=== PATIENT | female | born 1995 | race Caucasian/White ===

== ENCOUNTER → 2023-09-10 14:34 | Outpatient (REF) | payer OTHER, SELFPAY | LOC: HWRAD 14:34 | PROVIDERS: ATTENDING PHYSICIAN Nurse Practitioner; FAMILY PHYSICIAN Physician Assistant Medical | DX: K58.0 Irritable bowel syndrome with diarrhea (principal); R10.31 Right lower quadrant pain | CPT/HCPCS: 74177; Q9967 ==

== ENCOUNTER → 2024-02-07 15:14 | Outpatient (REF) | payer OTHER, SELFPAY | LOC: PNTC 15:14 | PROVIDERS: ATTENDING PHYSICIAN Student in an Organized Health Care Education/Training Program | DX: Z36.0 Encounter for antenatal screening for chromosomal anomalies (principal); Z36.82 Encounter for antenatal screening for nuchal translucency | CPT/HCPCS: 76801; 76813 ==

== ENCOUNTER → 2024-02-29 16:57 | Outpatient (REF) | payer OTHER, SELFPAY | LOC: PNTC 16:57 | PROVIDERS: ATTENDING PHYSICIAN Student in an Organized Health Care Education/Training Program | DX: O99.210 Obesity complicating pregnancy, unspecified trimester (principal); O14.90 Unspecified pre-eclampsia, unspecified trimester; Z34.82 Encounter for supervision of other normal pregnancy, second trimester | CPT/HCPCS: 76805 ==

== ENCOUNTER → 2024-03-28 06:57 | Outpatient (REF) | payer OTHER, SELFPAY | LOC: PNTC 06:57 | PROVIDERS: ATTENDING PHYSICIAN Student in an Organized Health Care Education/Training Program | DX: O99.210 Obesity complicating pregnancy, unspecified trimester (principal) | CPT/HCPCS: 76811 ==

== ENCOUNTER 2024-04-21 13:32 | Observation (INO) | payer OTHER, SELFPAY ==
[2024-04-21 14:04] VITALS: BMI 31.5
[2024-04-21 15:10] LABS: Hematocrit 33.9 % (37.0-47.0); Hemoglobin 11.8 g/dL (12.0-16.0); Mean Corp Hgb Conc. 34.8 g/dL (33.0-37.0); Mean Corpuscular Hgb 30.5 pg (27.0-31.0); Mean Corpuscular Volume 87.6 fL (81.0-99.0); Mean Platelet Volume 8.9 fL (7.4-10.4); Platelet Count 334 10^3/uL (130-400); Red Blood Cell Count 3.87 10^6/uL (4.20-5.40); Red Cell Dist. Width 13.2 % (11.5-14.5); Urine Albumin 1+ (Neg - Trace); Urine Bilirubin Negative (Negative); Urine Character Clear (Clear); Urine Color Yellow; Urine Glucose Negative (Negative); Urine Ketone Negative (Negative); Urine Leukocyte Negative (Negative); Urine Nitrite Negative (Negative); Urine Occult Blood Negative (Negative); Urine Specific Gravity 1.015 (<1.030); Urine Urobilinogen Negative (Neg - 1+); White Blood Cell Count 12.5 10^3/uL (4.8-10.8)
[2024-04-21 15:25] LABS: ALT (SGPT) 15 U/L (0-35); AST (SGOT) 21 U/L (14-36); Albumin 3.9 g/dl (3.5-5.0); Alkaline Phosphatase 64 U/L (38-126); Blood Urea Nitrogen 8 mg/dl (7-17); Calcium 9.7 mg/dl (8.4-10.2); Carbon Dioxide 25 mmol/L (22-30); Chloride 101 mmol/L (98-107); Estimated Creatinine Clearance > 125 ml/min; Glucose 81 mg/dl (70-99); Potassium 4.3 mmol/L (3.5-5.1); Sodium 134 mmol/L (135-145); Total Bilirubin 0.7 mg/dl (0.2-1.3); Total Protein 6.5 g/dl (6.3-8.2); Urine Red Blood Cell 0-2 /HPF (0-2); eGFR > 60.00
[2024-04-21 15:26] LABS: Urine Bacteria Moderate (Negative)
[2024-04-21 15:38] LABS: Protein/creatinine Ratio 0.2; Urine Protein 15 mg/dl
== END 2024-04-21 18:04 | disposition home or self-care (01) ==
LOC: LDRP 13:32
PROVIDERS: ADMITTING PHYSICIAN Obstetrics & Gynecology
DX: R50.9 Fever, unspecified (principal); R42 Dizziness and giddiness; R11.0 Nausea; O26.892 Other specified pregnancy related conditions, second trimester; Z3A.23 23 weeks gestation of pregnancy; Z88.1 Allergy status to other antibiotic agents; Z88.0 Allergy status to penicillin; Z88.8 Allergy status to other drugs, medicaments and biological substances
CPT/HCPCS: 59899; 80053; 81003; 81015; 82570; 84156; 85027; G0378

== ENCOUNTER → 2024-05-10 09:35 | Outpatient (REF) | payer OTHER, SELFPAY ==
--- NOTE | 2024-05-10 07:13 | PN.DIAED06 ---
Meal Plan - Gestational
- Breakfast
Gestational Diabetes Meal Plan Name: 2000 calories
Breakfast - Total Carbohydrate (grams): 45
Breakfast - Starch Carbohydrate: 2
Breakfast - Fruit Carbohydrate: 0
Breakfast - Milk Carbohydrate: 1
Breakfast - Nonstarchy Vegetables: Yes
Breakfast - Meat/Protein: 1
Breakfast - Fat: 2
- Morning Snack
Morning Snack - Total Carbohydrate (grams): 30
Morning Snack - Starch Carbohydrate: 1
Morning Snack - Fruit Carbohydrate: 0
Morning Snack - Milk Carbohydrate: 1
Morning Snack - Nonstarchy Vegetables: Yes
Morning Snack - Meat/Protein: 0
Morning Snack - Fat: 0
- Lunch
Lunch - Total Carbohydrate (grams): 45
Lunch - Starch Carbohydrate: 1
Lunch - Fruit Carbohydrate: 1
Lunch - Milk Carbohydrate: 1
Lunch - Nonstarchy Vegetables: Yes
Lunch - Meat/Protein: 2
Lunch - Fat: 2
- Afternoon Snack
Afternoon Snack - Total Carbohydrate (grams): 30
Afternoon Snack - Starch Carbohydrate: 1
Afternoon Snack - Fruit Carbohydrate: 1
Afternoon Snack - Milk Carbohydrate: 0
Afternoon Snack - Nonstarchy Vegetables: Yes
Afternoon Snack - Meat/Protein: 1
Afternoon Snack - Fat: 0
- Dinner
Dinner - Total Carbohydrate (grams): 45
Dinner - Starch Carbohydrate: 2
Dinner - Fruit Carbohydrate: 1
Dinner - Milk Carbohydrate: 0
Dinner - Nonstarchy Vegetables: Yes
Dinner - Meat/Protein: 2
Dinner - Fat: 2
- Evening Snack
Evening Snack - Total Carbohydrate (grams): 45
Evening Snack - Starch Carbohydrate: 1
Evening Snack - Fruit Carbohydrate: 1
Evening Snack - Milk Carbohydrate: 1
Evening Snack - Nonstarchy Vegetables: Yes
Evening Snack - Meat/Protein: 1
Evening Snack - Fat: 0
--- NOTE | 2024-05-10 11:52 | PN.DE.MGMTRT ---
Insulin Management
- -
05/10/2024 Gestational Diabetes Education
Patient G 1, P 0, edc 08/15/2024. Pre weight ~ 185.
Provided gestational education booklet and reviewed all aspects of gestational diagnosis. Patient unsure of her glucose values when she had the GTT. Reviewed risk factors for gestational diabetes, of which she has 2.
Provided ADA nutrition booklet and reviewed CHO foods, proteins, fats as well as serving sizes and number of servings per meal and snack. Provided 2000 calorie gestational meal plan and reviewed each meal and snack recommended servings. Patient is
able to repeat back appropriate choices.
Patient unsure of preferred glucose meter but thinks OneTouch Verio is preferred. Instructed on steps for testing including site selection for obtaining drop of blood, applying to strip. Instructed to test glucose fasting and 2 hours after each
meal. She knows to report results weekly to [facility].
RX for test strips lancets and meter electronically sent to preferred pharmacy.
Patient has my number for further questions.
Diabetes History
- -
Type of Diabetes: Gestational
Pre-Admission Diabetes Regimen
Insulin Pump Settings
IP Diabetes Regimen
Patient Education
--- NOTE | 2024-05-11 15:56 | PN.DIAED10 ---
Update Note
- Diabetes Education Update Note
Notes:
05/11/2024 DIABETES EDUCATION
Nohemi received prescription for Accu-Chek test strips but glucometer is out of stock, she is expecting this tomorrow. I requested sample of Contour Next Glucometer, test strips, and lancet kit, verbal education on how to SMBG. She completed a
self demonstration of fingerstick. I also provided education on [employer] ReliOn brand glucometer, test strips and lancets available OTC if the need arises. She verbalized understanding.
== END ==
LOC: DES 09:35
PROVIDERS: ATTENDING PHYSICIAN Student in an Organized Health Care Education/Training Program
DX: O24.419 Gestational diabetes mellitus in pregnancy, unspecified control (principal)
CPT/HCPCS: 99078

== ENCOUNTER → 2024-05-18 07:56 | Outpatient (REF) | payer OTHER, SELFPAY | LOC: PNTC 07:56 | PROVIDERS: ATTENDING PHYSICIAN Student in an Organized Health Care Education/Training Program | DX: O99.210 Obesity complicating pregnancy, unspecified trimester (principal); O99.320 Drug use complicating pregnancy, unspecified trimester | CPT/HCPCS: 76816 ==

== ENCOUNTER → 2024-06-06 16:05 | Outpatient (REF) | payer OTHER, SELFPAY | LOC: PNTC 16:05 | PROVIDERS: ATTENDING PHYSICIAN Obstetrics & Gynecology | DX: O36.8190 Decreased fetal movements, unspecified trimester, not applicable or unspecified (principal) | CPT/HCPCS: 59025; 76815 ==

== ENCOUNTER → 2024-06-29 08:13 | Outpatient (REF) | payer OTHER, SELFPAY | LOC: PNTC 08:13 | PROVIDERS: ATTENDING PHYSICIAN Student in an Organized Health Care Education/Training Program | DX: O99.210 Obesity complicating pregnancy, unspecified trimester (principal); O35.8XX0 Maternal care for other (suspected) fetal abnormality and damage, not applicable or unspecified | CPT/HCPCS: 76816 ==

== ENCOUNTER 2024-07-12 21:11 | Observation (INO) | payer OTHER, SELFPAY ==
[2024-07-12 21:18] VITALS: BMI 33.1
[2024-07-12 21:42] LABS: Glucose - Point of Care 83 mg/dl (70-99)
[2024-07-12 21:53] VITALS: BP 137/86
== END 2024-07-12 23:46 | disposition home or self-care (01) ==
LOC: LDRP 21:11
PROVIDERS: ADMITTING PHYSICIAN Obstetrics & Gynecology
DX: O36.8130 Decreased fetal movements, third trimester, not applicable or unspecified (principal); Z3A.35 35 weeks gestation of pregnancy; M54.9 Dorsalgia, unspecified; R10.9 Unspecified abdominal pain; O24.410 Gestational diabetes mellitus in pregnancy, diet controlled; O99.343 Other mental disorders complicating pregnancy, third trimester; F41.9 Anxiety disorder, unspecified; Z28.310 Unvaccinated for COVID-19; Z88.0 Allergy status to penicillin; Z88.8 Allergy status to other drugs, medicaments and biological substances
CPT/HCPCS: 59899; 82962; G0378

== ENCOUNTER → 2024-07-18 16:22 | Outpatient (REF) | payer OTHER, SELFPAY | LOC: CLAB 16:22 | PROVIDERS: ATTENDING PHYSICIAN Student in an Organized Health Care Education/Training Program | DX: Z36.85 Encounter for antenatal screening for Streptococcus B (principal) | CPT/HCPCS: 87070 ==

== ENCOUNTER 2024-07-28 00:09 | Inpatient (IN) | payer OTHER, SELFPAY ==
[2024-07-28 00:52] VITALS: BP 127/82; BMI 34.9
[2024-07-28 01:14] LABS: Glucose - Point of Care 114 mg/dl (70-99)
[2024-07-28] MEDS: LR 1000 IV ×2 (01:15→02:10)
[2024-07-28 01:30] LABS: % Basophils 0.2 % (0-2); % Eosinophils 1.2 % (0-6); % Immature Granulocytes 0.9 % (0-0.5); % Lymphocytes 19.4 % (20.5-51.1); % Monocytes 7.1 % (1.7-9.3); % Neutrophils 71.2 % (42.2-75.2); Absolute Eosinophils 0.2 10^3/uL (0-0.7); Absolute Immature Granulocytes 0.1 10^3/uL (0-0.05); Absolute Lymphocytes 2.4 10^3/uL (1.2-3.4); Absolute Monocytes 0.9 10^3/uL (0.1-0.6); Absolute Neutrophils 8.7 10^3/uL (1.4-6.5); Hemoglobin 11.6 g/dL (12.0-16.0); Mean Corp Hgb Conc. 35.2 g/dL (33.0-37.0); Mean Corpuscular Hgb 29.4 pg (27.0-31.0); Mean Corpuscular Volume 83.8 fL (81.0-99.0); Mean Platelet Volume 10.2 fL (7.4-10.4); Nucleated Red Blood Cells % 0 %; Platelet Count 294 10^3/uL (130-400); Red Blood Cell Count 3.94 10^6/uL (4.20-5.40); Red Cell Dist. Width 13.5 % (11.5-14.5); White Blood Cell Count 12.2 10^3/uL (4.8-10.8)
[2024-07-28] MEDS: CLEOCIN 50 IV ×3 (02:10→17:53)
[2024-07-28 05:03] LABS: Glucose - Point of Care 81 mg/dl (70-99)
[2024-07-28] MEDS: PITOCIN 30 UNITS/NSS 500 ML IV (05:38)
[2024-07-28 09:10] LABS: Glucose - Point of Care 84 mg/dl (70-99)
[2024-07-28 12:51] LABS: Glucose - Point of Care 76 mg/dl (70-99)
[2024-07-28] MEDS: SUBLIMAZE 100 MCG EPIDURAL (16:35)
[2024-07-28] MEDS: FENTANYL/BUPIVACAINE 100 EPIDURAL (16:35)
[2024-07-28 16:54] LABS: Glucose - Point of Care 76 mg/dl (70-99)
[2024-07-28 20:12] LABS: Glucose - Point of Care 81 mg/dl (70-99)
[2024-07-28] MEDS: ZOLOFT 100 MG PO (21:16)
[2024-07-29] MEDS: FENTANYL/BUPIVACAINE 100 EPIDURAL ×2 (00:40→10:06)
[2024-07-29 00:50] LABS: Glucose - Point of Care 78 mg/dl (70-99)
[2024-07-29] MEDS: CLEOCIN 50 IV ×2 (01:44→10:06)
[2024-07-29] MEDS: LR 1000 IV ×2 (02:08→10:00)
[2024-07-29 05:40] LABS: Glucose - Point of Care 79 mg/dl (70-99)
[2024-07-29 08:48] LABS: Glucose - Point of Care 90 mg/dl (70-99)
[2024-07-29] MEDS: ZOLOFT PO (09:04)
[2024-07-29] MEDS: TYLENOL 1000 MG PO (10:33)
[2024-07-29] MEDS: BICITRA 30 ML PO (10:33)
[2024-07-29 11:45] LABS: Cord VBG B.E. - POC -1.3 mmol/L; Cord VBG HCO3 - POC 23 mmol/L; Cord VBG O2 Sat % - POC 64.4 %; Cord VBG pCO2 - POC 36 mmHg; Cord VBG pH - POC 7.41; Cord VBG pO2 - POC 33 mmHg
[2024-07-29] MEDS: TUMS CHEWABLE TABLET 400 MG PO (12:01)
[2024-07-29] MEDS: MORPHINE SULFATE 4 MG IV (13:54)
[2024-07-29] MEDS: TORADOL 15 MG IV ×2 (15:26→20:50)
[2024-07-29] MEDS: ZOLOFT 100 MG PO (21:26)
[2024-07-30] MEDS: TORADOL 15 MG IV ×2 (02:58→08:39)
[2024-07-30 04:35] LABS: Hematocrit 29.2 % (37.0-47.0); Hemoglobin 10.1 g/dL (12.0-16.0); Mean Corp Hgb Conc. 34.6 g/dL (33.0-37.0); Mean Corpuscular Hgb 29.9 pg (27.0-31.0); Mean Corpuscular Volume 86.4 fL (81.0-99.0); Mean Platelet Volume 10.5 fL (7.4-10.4); Platelet Count 261 10^3/uL (130-400); Red Blood Cell Count 3.38 10^6/uL (4.20-5.40); Red Cell Dist. Width 13.7 % (11.5-14.5); White Blood Cell Count 15.8 10^3/uL (4.8-10.8)
[2024-07-30] MEDS: PRENATAL PLUS 1 TABLET PO (08:39)
[2024-07-30] MEDS: SENOKOT-S 1 TABLET PO (08:48)
--- NOTE | 2024-07-30 14:23 | W.PN.ANS.POP ---
Anesthesia Post Operative
- Anesthesia Post Op Note
Vital Signs Stable-See Nursing Note: Yes
Airway Patent: Yes
Adequate Pain Control: Yes
Change in Mental Status: No
Current Postoperative Nausea & Vomiting: No
Anesthesia Complications: No
General Anesthetic Recall: No
Unplanned Admission: No
Post Op Hydration Adequate: Yes
[2024-07-30] MEDS: PERCOCET 5/325 1 TABLET PO ×3 (14:35→22:08)
[2024-07-30] MEDS: MOTRIN 600 MG PO ×2 (16:39→22:08)
[2024-07-30 22:42] LABS: % Basophils 0.1 % (0-2); % Eosinophils 0.3 % (0-6); % Immature Granulocytes 0.9 % (0-0.5); % Lymphocytes 9.6 % (20.5-51.1); % Monocytes 6.3 % (1.7-9.3); % Neutrophils 82.8 % (42.2-75.2); Absolute Immature Granulocytes 0.1 10^3/uL (0-0.05); Absolute Lymphocytes 1.4 10^3/uL (1.2-3.4); Absolute Monocytes 0.9 10^3/uL (0.1-0.6); Absolute Neutrophils 11.8 10^3/uL (1.4-6.5); Hematocrit 29.4 % (37.0-47.0); Mean Corpuscular Hgb 29.9 pg (27.0-31.0); Mean Corpuscular Volume 87.8 fL (81.0-99.0); Mean Platelet Volume 9.8 fL (7.4-10.4); Nucleated Red Blood Cells % 0 %; Platelet Count 299 10^3/uL (130-400); Red Blood Cell Count 3.35 10^6/uL (4.20-5.40); Red Cell Dist. Width 14.1 % (11.5-14.5); White Blood Cell Count 14.2 10^3/uL (4.8-10.8)
[2024-07-30 23:02] LABS: ALT (SGPT) 15 U/L (0-35); AST (SGOT) 25 U/L (14-36); Albumin 2.9 g/dl (3.5-5.0); Alkaline Phosphatase 116 U/L (38-126); Blood Urea Nitrogen 10 mg/dl (7-17); Calcium 8.7 mg/dl (8.4-10.2); Carbon Dioxide 24 mmol/L (22-30); Chloride 109 mmol/L (98-107); Estimated Creatinine Clearance 121 ml/min; Glucose 102 mg/dl (70-99); Potassium 4.2 mmol/L (3.5-5.1); Sodium 136 mmol/L (135-145); Total Bilirubin 0.4 mg/dl (0.2-1.3); Total Protein 5.4 g/dl (6.3-8.2); eGFR > 60.00
[2024-07-30] MEDS: VANCOCIN 540 MG IV (23:02)
[2024-07-30] MEDS: CLEOCIN 50 IV (23:07)
[2024-07-30] MEDS: ZOLOFT 100 MG PO (23:27)
[2024-07-30] MEDS: GENTAMICIN 62.25 MG IV (23:36)
[2024-07-31] MEDS: BENADRYL 25 MG IV (00:24)
[2024-07-31] MEDS: PERCOCET 5/325 2 TABLET PO ×2 (02:00→06:24)
[2024-07-31] MEDS: MOTRIN 600 MG PO ×4 (04:03→22:29)
[2024-07-31] MEDS: CLEOCIN 50 IV ×3 (05:57→22:03)
[2024-07-31 06:22] LABS: % Basophils 0.3 % (0-2); % Eosinophils 0.1 % (0-6); % Immature Granulocytes 1.6 % (0-0.5); % Lymphocytes 9.1 % (20.5-51.1); % Monocytes 4.3 % (1.7-9.3); % Neutrophils 84.6 % (42.2-75.2); Absolute Immature Granulocytes 0.2 10^3/uL (0-0.05); Absolute Monocytes 0.5 10^3/uL (0.1-0.6); Absolute Neutrophils 9.3 10^3/uL (1.4-6.5); Hematocrit 28.5 % (37.0-47.0); Hemoglobin 9.8 g/dL (12.0-16.0); Mean Corp Hgb Conc. 34.4 g/dL (33.0-37.0); Mean Corpuscular Volume 87.2 fL (81.0-99.0); Mean Platelet Volume 9.8 fL (7.4-10.4); Nucleated Red Blood Cells % 0 %; Platelet Count 278 10^3/uL (130-400); Red Blood Cell Count 3.27 10^6/uL (4.20-5.40); Red Cell Dist. Width 14.2 % (11.5-14.5); White Blood Cell Count 10.9 10^3/uL (4.8-10.8)
[2024-07-31 08:24] LABS: Cord ABG HCO3 - POC 26 mmol/L; Cord ABG pCO2 - POC 53 mmHg; Cord ABG pO2 - POC < 18 mmHg
[2024-07-31] MEDS: FEOSOL 325 MG PO (09:14)
[2024-07-31] MEDS: PRENATAL PLUS 1 TABLET PO (09:14)
[2024-07-31] MEDS: VANCOCIN 200 IV ×2 (09:52→22:02)
[2024-07-31] MEDS: PERCOCET 5/325 1 TABLET PO ×2 (12:31→20:44)
[2024-07-31] MEDS: ZOLOFT 100 MG PO (22:13)
[2024-07-31] MEDS: SENOKOT-S 1 TABLET PO (22:29)
[2024-07-31] MEDS: TYLENOL 650 MG PO (22:37)
[2024-07-31] MEDS: GENTAMICIN 62.25 MG IV (22:57)
[2024-08-01] MEDS: CLEOCIN 50 IV ×2 (06:08→14:34)
[2024-08-01] MEDS: MOTRIN 600 MG PO ×3 (06:17→19:35)
[2024-08-01] MEDS: TYLENOL 650 MG PO ×2 (06:17→19:35)
[2024-08-01 06:29] LABS: Hematocrit 30.6 % (37.0-47.0); Hemoglobin 10.1 g/dL (12.0-16.0); Mean Corpuscular Hgb 29.2 pg (27.0-31.0); Mean Corpuscular Volume 88.4 fL (81.0-99.0); Mean Platelet Volume 9.3 fL (7.4-10.4); Platelet Count 233 10^3/uL (130-400); Red Blood Cell Count 3.46 10^6/uL (4.20-5.40); Red Cell Dist. Width 14.3 % (11.5-14.5)
[2024-08-01 07:43] LABS: Absolute Neutrophils -Man Diff 8.9 10^3/uL (1.4-6.5); Band Neutrophils 10 % (0-3); Lymphocytes 10 % (20-51); Monocytes 1 % (2-9); Normal RBC Morphology Yes; Platelets Checked Yes; Segmented Neutrophils 79 % (42-75); Total Cells Counted 100
[2024-08-01] MEDS: FEOSOL 325 MG PO (08:22)
[2024-08-01] MEDS: PRENATAL PLUS 1 TABLET PO (08:22)
[2024-08-01] MEDS: SENOKOT-S 1 TABLET PO (08:22)
[2024-08-01] MEDS: VANCOCIN 200 IV (09:57)
[2024-08-01 14:10] LABS: Syphilis/T. pallidum Ab Reflex Negative (Negative)
--- NOTE | 2024-08-01 16:02 | CON.ID ---
Consultation
-
Date/Time Consultation Requested: 08/01/2024 1024
Date/Time Consultation Performed: 08/01/2024 1530
Requesting Provider: Dr. Escobedo
Performing Provider: Dr. Vargas
Reason for Consultation: E. coli bacteremia
Chief Complaint / Past History
History of Present Illness
Nohemi Chacko is a 28-year-old female being dilated at the request of Dr. Escobedo regarding bacteremia. History is obtained from chart review, along with patient interview.
The patient presented to [facility] very late on 07/27 following rupture of membranes at home. She was 37 weeks . On 07/28 she was started on Pitocin. On 07/29 she was dilated, and having contractions although a deceleration was noted,
and ultimately she was taken to . Late in the day on 07/30 she reports that she felt cold, and shaky. She developed a fever to 101 degrees, and blood cultures were found to be positive. She was started on empiric antibiotics.
Currently she is feeling somewhat improved. She denies any abdominal pain. She denies any history of dysuria.
Past History
Additional Past Medical History:
Migraines
Additional Past Surgical History:
Tonsils
Allergy History:
amoxicillin Allergy (Verified 07/28/24 00:51)
Hives ~ 1yo
sumatriptan (From Imitrex) Allergy (Verified 07/28/24 00:51)
Anaphylaxis
Medications Reviewed: Yes
Current Antibiotics:
Vanco
Gent
Clinda
Social History
Tobacco: Non-Smoker
Alcohol: None
Drug: None
Personal:
Living: With Family
Employment: Employed
Family History
Family History: Not Pertinent
Review of Systems
Vital Signs
Temp Pulse Resp BP
98.0 F 91 16 127/82
07/28/24 00:52 07/28/24 00:52 07/28/24 00:52 07/28/24 00:52
Physical Exam
Physical Exam
Constitutional: No Acute Distress, Well Developed, Comfortable and Non-toxic
Head: Normocephalic
Eyes: Pupils Equal, Pupils Round, No Conjunctival Hemorrhage and Sclera Anicteric
Oral: No Thrush and No Ulcers
Cardiovascular: Regular Rate and S1/S2; Negative S3/S4 or Murmur
Pulmonary: Clear; Negative Wheezes, Rales or Rhonchi
Gastrointestinal: Soft, Non Tender, Non Distended and Normal Bowel Sounds
Genito-Urinary: Negative Lazcano
Extremities: Edema; Negative Cyanosis or Erythema
Skin: Warm and Dry; Negative Rash or Jaundice
Wound: Other (Low transverse incision clean, dry and intact. No surrounding periwound erythema. No drainage)
Neurological: Awake, Alert and Oriented
Psychological: Calm
Lab / Diagnostic Study Results
08/01/24 06:07
07/30/24 22:28
Abs Immat Gran (auto) 0.2 10^3/uL (0-0.05) H 07/31/24 05:59
Absolute Neuts (auto) 9.3 10^3/uL (1.4-6.5) H 07/31/24 05:59
Absolute Lymphs (auto) 1.0 10^3/uL (1.2-3.4) L 07/31/24 05:59
Absolute Monos (auto) 0.5 10^3/uL (0.1-0.6) 07/31/24 05:59
Absolute Basos (auto) 0.0 10^3/uL (0-0.2) 07/31/24 05:59
Total Counted 100 08/01/24 06:07
Immature Gran % 1.6 % (0-0.5) H 07/31/24 05:59
Neutrophils % 84.6 % (42.2-75.2) H 07/31/24 05:59
Lymphocytes % 9.1 % (20.5-51.1) L 07/31/24 05:59
Monocytes % 4.3 % (1.7-9.3) 07/31/24 05:59
Eosinophils % 0.1 % (0-6) 07/31/24 05:59
Basophils % 0.3 % (0-2) 07/31/24 05:59
Abs Neuts (Manual) 8.9 10^3/uL (1.4-6.5) H 08/01/24 06:07
Segmented Neutrophils 79 % (42-75) H 08/01/24 06:07
Band Neutrophils 10 % (0-3) H 08/01/24 06:07
Lymphocytes (Manual) 10 % (20-51) L 08/01/24 06:07
Lactic Acid 1.0 mmol/L (0.7-2.0) 07/30/24 22:28
Microbiology Results
Micro:
07/30/24 22:28 Blood Culture - Preliminary
Blood/Venous Escherichia coli
Gram Stain - Final
07/30/24 23:01 Blood Culture - Preliminary
Blood/Venous Escherichia coli
Gram Stain - Preliminary
Assessment / Plan
E. coli bacteremia
Possible chorioamnionitis
Leukocytosis
Fever
S/p
Hx migraines
Recommendations:
Narrow antibiotics to ceftriaxone 2 g IV every 24 hours
Monitor temperature curve.
--> Repeat blood cultures for temperature greater than 100.5 degrees.
If overall clinically improved and stable over next 24-48h, may be able to transition to regimen of oral cefdinir to complete therapy.
Care Review
Plan reviewed with: Physician (ObGyn)
[2024-08-01] MEDS: ROCEPHIN 2000 MG IV (17:38)
[2024-08-01] MEDS: STERILE WATER FOR INJECTION 20 ML IV (17:38)
[2024-08-02] MEDS: ZOLOFT 100 MG PO (00:59)
[2024-08-02] MEDS: MOTRIN 600 MG PO ×3 (02:35→15:01)
[2024-08-02] MEDS: TYLENOL 650 MG PO ×3 (02:35→15:01)
[2024-08-02 07:10] LABS: % Basophils 0.6 % (0-2); % Eosinophils 1.8 % (0-6); % Immature Granulocytes 2.9 % (0-0.5); % Lymphocytes 14.6 % (20.5-51.1); % Neutrophils 73.1 % (42.2-75.2); Absolute Basophils 0.1 10^3/uL (0-0.2); Absolute Eosinophils 0.2 10^3/uL (0-0.7); Absolute Immature Granulocytes 0.3 10^3/uL (0-0.05); Absolute Lymphocytes 1.4 10^3/uL (1.2-3.4); Absolute Monocytes 0.7 10^3/uL (0.1-0.6); Absolute Neutrophils 7.2 10^3/uL (1.4-6.5); Hematocrit 32.4 % (37.0-47.0); Hemoglobin 10.7 g/dL (12.0-16.0); Mean Corpuscular Hgb 29.1 pg (27.0-31.0); Nucleated Red Blood Cells % 0 %; Platelet Count 280 10^3/uL (130-400); Red Blood Cell Count 3.68 10^6/uL (4.20-5.40); Red Cell Dist. Width 14.1 % (11.5-14.5); White Blood Cell Count 9.9 10^3/uL (4.8-10.8)
[2024-08-02] MEDS: FEOSOL 325 MG PO (08:00)
[2024-08-02] MEDS: PRENATAL PLUS 1 TABLET PO (08:00)
[2024-08-02] MEDS: SENOKOT-S 1 TABLET PO (08:00)
--- NOTE | 2024-08-02 11:13 | W.PN.ID1 ---
Date of Service
Date of Service: August 02, 2024
Today's Communication
Continue antibiotics. See below�
Assessment / Plan
E. coli bacteremia
Possible chorioamnionitis (although pt with minimal symptoms )
Leukocytosis; improved
Fever
S/p
Hx migraines
Recommendations:
Last temperature greater than 24 hours ago.
White count is normalized.
No objection to discharge, to continue with cefdinir 300 mg p.o. twice daily for an additional 14 days of therapy.
����������������������������������������������������������
Chief Complaint
-: Fever and Bacteremia
Subjective / Review of Systems
Review of Systems: No Fever, No Chills, No Abdominal Pain and No Dysuria
Vital Signs / Physical Exam
Vital Signs
Vital Signs
Temp Pulse Resp BP
98.0 F 91 16 127/82
07/28/24 00:52 07/28/24 00:52 07/28/24 00:52 07/28/24 00:52
Physical Exam
Constitutional: No Acute Distress, Comfortable and Non-toxic
Eyes: Sclera Anicteric
Cardiovascular: S1/S2; Negative S3/S4
Pulmonary: Non Labored
Gastrointestinal: Soft, Tender (minimal around incision.), No Rebound and No Guarding
Genito-Urinary: Negative CVA Tenderness
Neurological: Awake and Alert
Psychological: Calm
Objective Data
Lab Data
Lab Results
08/02/24 06:01
07/30/24 22:28
Estimated Creat Clear 121 ml/min 07/30/24 22:28
Lactic Acid 1.0 mmol/L (0.7-2.0) 07/30/24 22:28
Total Bilirubin 0.4 mg/dl (0.2-1.3) 07/30/24 22:28
AST 25 U/L (14-36) 07/30/24 22:28
ALT 15 U/L (0-35) 07/30/24 22:28
Alkaline Phosphatase 116 U/L (38-126) 07/30/24 22:28
Most recent labs reviewed.
Micro Results:
07/30/24 22:28 Blood Culture - Preliminary
Blood/Venous Escherichia coli
Gram Stain - Final
07/30/24 23:01 Blood Culture - Final
Blood/Venous Escherichia coli
Gram Stain - Final
Care Review
Plan reviewed with: Physician (SLIP LASTER)
--- NOTE | 2024-08-02 12:14 | W.DS.TRANS ---
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
-
Discharge Instructions:
Discharge Diagnosis/Procedures delivered by Primary Low transverse
csection; ruptured membranes, induction of labor
, epidural, nonreassuring heart rate,
Primary LTCS, EColi bacteremia, suspected
endometritis
Diet Regular
Activity No strenuous activity
Driving Restrictions No driving for 2 weeks
Bathing Restrictions OK to Shower
Wound Care You may shower. Pat incision dry.
Instructions:
Stand-Alone Forms: LDRP Delivery
Changes to Home Medications: No
Discharge Medications:
DC Medications w/original date entered in [employer]
prenat.vits,melina,eed-scao-gmngd 1 tab PO DAILY 04/21/24
sertraline 100 mg tablet (Zoloft) 100 mg PO DAILY 04/21/24
acetaminophen 325 mg tablet 650 mg (2 x 325 mg) PO Q4HPRN PRN mild pain #0 tabs 08/02/24
cefdinir 300 mg capsule 300 mg PO BID 14 days #28 caps 08/02/24
ferrous sulfate 325 mg (65 mg iron) tablet (FeroSul) 325 mg PO DAILY #1 tab 08/02/24
ibuprofen 600 mg tablet 600 mg PO Q6HPRN PRN cramps #0 tabs 08/02/24
Home Medication Changes
Pending Results: Yes (placental pathology)
Total time spent discharging patient (in min): 30
[2024-08-02] MEDS: ROCEPHIN 2000 MG IV (15:55)
== END 2024-08-02 17:10 | disposition home or self-care (01) | DRG 787 ==
LOC: LDRP 00:09
PROVIDERS: Obstetrics & Gynecology; ADMITTING PHYSICIAN Obstetrics & Gynecology; OTHER PHYSICIAN Internal Medicine Infectious Disease
PROC: 10D00Z1 Extraction of Products of Conception, Low, Open Approach (ICD-10-PCS; 2024-07-29)
DX: O42.02 Full-term premature rupture of membranes, onset of labor within 24 hours of rupture (principal); O86.4 Pyrexia of unknown origin following delivery; O76 Abnormality in fetal heart rate and rhythm complicating labor and delivery; Z37.0 Single live birth; Z3A.37 37 weeks gestation of pregnancy; O99.824 Streptococcus B carrier state complicating childbirth; O24.420 Gestational diabetes mellitus in childbirth, diet controlled; O99.344 Other mental disorders complicating childbirth; F32.A Depression, unspecified; F41.9 Anxiety disorder, unspecified
CPT/HCPCS: 88307; 80053; 82962; 83605; 85025; 85027; 86780; 86850; 86900; 86901; 87040; 87154; 87186; 87205; 93005

== ENCOUNTER 2024-08-14 18:05 | Inpatient (IN) | payer OTHER, SELFPAY ==
[2024-08-14] VITALS (8 sets, daily range): BP systolic 102–126; BP diastolic 62–95; BMI 31.0
--- NOTE | 2024-08-14 13:50 | ED.GENMED ---
History of Present Illness
General
Chief Complaint: Fever
Source: patient and records
Exam Limitations: none
Time Seen by Provider: 08/14/24 13:36
History of Present Illness
History of Present Illness:
28yoF with a recent on 07/29/24 complicated by E.coli bacteremia presenting for evaluation of a fever. Patient was discharged from the hospital with a 14 day course of cefdinir which she is still taking and has 7 doses left. She woke up
this morning with chills and body aches. She spiked a fever of 101.5. She took Tylenol with improvement. She also reports redness and swelling around her incision over the past few days. Her only other symptom is a headache. She
denies any vomiting, diarrhea, dysuria, cough, breast redness. Her vaginal discharge is brown and very minimal.
Phy Exam
General Physical Exam
General Presentation: well appearing and no apparent distress
General Skin: warm and dry
General Habitus: normal
General Mental: alert
ENT Exam
ENT Exam: TM's normal, pharynx normal, neck supple and normocephalic
Cardiovascular Exam
Cardiovascular Exam: regular rate/rhythm
Gastrointestinal Exam
Gastrointestinal Exam: soft, non distended and other (Pfannenstiel incision noted with surrounding erythema, induration, and tenderness. No drainage. +RLQ abdominal tenderness.)
Neurological Exam
Neurological Exam: alert
Iaeger Coma Scale
Eye Opening: Spontaneous
Verbal Response: Oriented
Motor Response: Obeys Commands
GCS Total Score: 15
Skin Exam
Skin Exam: warm/dry
Psychiatric Exam
Psychiatric Exam: normal mood/affect
Course
Orders/Labs/Results
Orders:
Orders
08/14/24 13:48
CT Abd/pelvis W Iv Cont Urgent
Comment:
Reason For Exam: fever, RLQ pain, incision redness, recent Csection
0.9% Sodium Chloride 1000 ml [Nss] 1,000 ml IV BOLUS
08/14/24 13:58
COVID-19 Antigen Urgent
Source: Nasal Swab
Complete Blood Count/With Diff Urgent
Comprehensive Metabolic Panel Urgent
Lactate Level [Lactic Acid] Urgent
Blood Culture Q30M
JACOB Source: Blood/Venous
Specimen Description:
Influenza A+B Rapid Molecular Urgent
JACOB Source: Nasal Swab
Specimen Description:
08/14/24 13:59
Urinalysis Reflex To Culture Urgent
Date Specimen was Collected: 08/14/24
Time Specimen was Collected: 13:57
Urine Microscopic Reflex Cult Urgent
Urine Culture Urgent
JACOB Source: U
Specimen Description:
Date Specimen was Collected: 08/14/24
Time Specimen was Collected: 13:57
08/14/24 14:25
Blood Culture Q30M
JACOB Source: Blood/Venous
Specimen Description:
08/14/24 Dinner
Regular
At Your Request: Full Participation
08/14/24 16:21
Acetaminophen [Tylenol] 1,000 mg .ROUTE .STK-MED ONE
Acetaminophen [Tylenol] 1,000 mg PO NOW STA
08/14/24 16:40
Ertapenem [Invanz] 1,000 mg 0.9% Sodium Chloride [Nss] 50 ml IV NOW
08/14/24 17:37
Admit/Transfer Patient As Directed
Co-Sign Provider:
Level of Care: Inpatient admission
Assign to:: Medical/Surgical
Physician / Group: Mirsky/Hospitalist
Diagnosis: Incisional Infection
Reason for Hospitalization: Incisional Infection
Expected length of stay greater than two midnights?: Yes
ELOS- Estimated Length of Stay in days: 4
I certify the patient meets the requirements for IP care: Yes
PRN Pain Medication Management As Directed
May give lesser potent ordered pain med per pt: Yes
preference::
Protocol:: Medication orders for pain may be administered in a
manner that supports deferring to patient preference
when the pt is:
- Requesting an ordered lesser potent pain medication.
Least to most potent pain medications are defined
as: acetaminophen < NSAID < tramadol < opioids
(morphine, oxycodone, hydromorphone).
- Requesting a lesser dose of the same medication IF
ORDERED.
- Requesting a less intrusive route of administration
if both routes are prescribed by the provider (PO <
IV).
08/14/24 17:40
Code Status As Directed
Resuscitation Status: Full Code
08/14/24 19:45
Acetaminophen [Tylenol] 650 mg PO Q4HPRN PRN mild pain
Bisacodyl [Dulcolax] 10 mg RECTAL [id number] PRN
Docusate W/Senna [Senokot-S] 1 tablet PO BIDPRN PRN
Enoxaparin Sodium [Lovenox] 40 mg SC QPM
Ibuprofen [Motrin] 600 mg PO Q6HPRN PRN cramps
Lactated Ringers [Lr] 1,000 ml IV 60 mls/hr
Oxycodone [Roxicodone] 5 mg PO Q4HPRN PRN
Polyethylene Glycol Powder [Miralax] 17 grams PO DAILYPRN PRN
VANCOMYCIN Pharmacy to Dose [VANCOCIN Pharmacy to Dose] 1 each Pharmacy To Prepare [Call Pharmacy To Prepare] 0 ml IV PER PROTOCOL
08/14/24 19:45
Consult Infectious Disease [INFECTIOUS DISEASE CONSULT] Routine
Consulting Provider: Susanne Dobbs
Was physician already notified: Yes
Consult ELECTRONICS COMPUTER MECHANIC [ELECTRONICS COMPUTER MECHANIC CONSULT] Routine
Consulting Provider: Flor Miramontes
Was physician already notified: Yes
Ferritin Routine
Iron Routine
Total Iron Binding Routine
Activity As Directed
Activity Level: Out of Bed-Early Mobility
Vital Signs As Directed
Frequency: Per unit guidelines
DX Deep Vein Thrombosis Video Routine
08/15/24 06:00
Complete Blood Count/No Diff IN AM
Comprehensive Metabolic Panel IN AM
Vitamin B12 IN AM
08/15/24 08:00
Sertraline HCl [Zoloft] 100 mg PO DAILY
prenat.vits,melina,kip-rlsq-ziaat 1 tablet PO DAILY
08/15/24 16:00
Ertapenem [Invanz] 1,000 mg 0.9% Sodium Chloride [Nss] 50 ml IV Q24H
Abnormal Lab Results
08/14/24 08/14/24
13:58 13:59
RBC 3.62 L 10^6/uL
(4.20-5.40)
Hgb 10.3 L g/dL
(12.0-16.0)
Hct 31.8 L %
(37.0-47.0)
MCHC 32.4 L g/dL
(33.0-37.0)
Plt Count 616 H 10^3/uL
(130-400)
Abs Immat Gran (auto) 0.1 H 10^3/uL
(0-0.05)
Absolute Neuts (auto) 8.6 H 10^3/uL
(1.4-6.5)
Immature Gran % 0.7 H %
(0-0.5)
Neutrophils % 81.0 H %
(42.2-75.2)
Lymphocytes % 12.1 L %
(20.5-51.1)
Ur Occult Blood Reflex 1+ A
(Negative)
Leukocyte Esterase Rfl 3+ A
(Negative)
Urine RBC 3-6 A /HPF
(0-2)
Urine WBC (Reflex) 90-100 A /HPF
(0-5)
08/14/24 13:58
08/14/24 13:58
Vital Signs
Initial and Last Documented VS:
Initial Vital Signs
Temp Pulse Resp BP Pulse Ox
98.5 F 93 18 115/76 98
08/14/24 11:13 08/14/24 11:13 08/14/24 11:13 08/14/24 11:13 08/14/24 11:13
Last Documented Vital Signs
Temp Pulse Resp BP Pulse Ox
100.1 F 92 20 126/95 97
08/14/24 18:48 08/14/24 17:46 08/14/24 15:26 08/14/24 17:00 08/14/24 17:45
MDM/Problems Addressed
Differential Diagnosis Includes:
28yoF here with fever/chills that began today. S/p about 2 weeks ago complicated by E.coli bacteremia. Still taking cefdinir. Tmax 101.5 at home. Temp 98.5 on arrival although she did take Tylenol REPORTS DEVELOPER. There is erythema and induration
surrounding her surgical incision. Differential diagnosis includes but is not limited to: viral illness, UTI, surgical infection, abscess, less likely endometritis given lack of significant vaginal discharge
Initial ED plan: Check septic workup including blood cultures, lactate, UA, COVID/flu swab, and CT abdomen. IV fluid bolus.
*Pulse Oximetry
SaO2: 98
Oxygen Mode of Delivery: Room air
Patient hypoxic: no (98%)
*Critical Care Note
Total Time (30-74mins, 75-104mins- exclusive of procedures): Not Applicable
Update Note
Update Note:
White count and lactate are within normal limits. Viral testing negative. UA with 90-[address] shows findings suggestive of cellulitis and developing abscess formation in the lower abdominal/pelvic wall. IV ertapenem ordered and patient
admitted for further management.
ED Attending Note
-
Portions of this chart may have been created with voice recognition software.� Occasional wrong word or��sound alike� substitutions may have occurred due to the inherent limitations of voice recognition software.
Discharge Plan
Departure
Patient Disposition: Admit
Date of Disposition: 08/14/24
Time of Disposition: 16:55
Presentation/result/management discussed w/ accepting MD/DO: Hospitalist
Discharge Problem:
Postoperative wound abscess
Interventions
Interventions:
*Risk Screen - Suicide Last Done: 08/14/24 14:04
*General Assessment Last Done: 08/14/24 14:04
*Neglect/Abuse Screening Last Done: 08/14/24 14:04
*ED- Fall Risk Assessment Last Done: 08/14/24 14:04
*ED COVID-19 Vaccine History Last Done: 08/14/24 14:04
*Nursing Disposition Last Done: 08/14/24 19:48
ED- Neurological Assessment Last Done: 08/14/24 14:04
ED-Skin Assessment Last Done: 08/14/24 14:04
Discharge Date and Time
Discharge Date/Time: 08/14/24 19:49
[2024-08-14] MEDS: NSS 1000 IV (14:01)
[2024-08-14 14:29] LABS: COVID-19 Antigen Negative (Negative); Lactic Acid 0.8 mmol/L (0.7-2.0)
[2024-08-14 14:35] LABS: Urine Albumin Negative (Neg - Trace); Urine Bilirubin Negative (Negative); Urine Character Slightly Cloudy (Clear); Urine Color Yellow; Urine Glucose Negative (Negative); Urine Ketone Negative (Negative); Urine Leukocyte 3+ (Negative); Urine Nitrite Negative (Negative); Urine Occult Blood 1+ (Negative); Urine Urobilinogen Negative (Neg - 1+)
[2024-08-14 14:40] LABS: % Basophils 0.4 % (0-2); % Eosinophils 0.5 % (0-6); % Immature Granulocytes 0.7 % (0-0.5); % Lymphocytes 12.1 % (20.5-51.1); % Monocytes 5.3 % (1.7-9.3); Absolute Eosinophils 0.1 10^3/uL (0-0.7); Absolute Immature Granulocytes 0.1 10^3/uL (0-0.05); Absolute Lymphocytes 1.3 10^3/uL (1.2-3.4); Absolute Monocytes 0.6 10^3/uL (0.1-0.6); Absolute Neutrophils 8.6 10^3/uL (1.4-6.5); Hematocrit 31.8 % (37.0-47.0); Hemoglobin 10.3 g/dL (12.0-16.0); Mean Corp Hgb Conc. 32.4 g/dL (33.0-37.0); Mean Corpuscular Hgb 28.5 pg (27.0-31.0); Mean Corpuscular Volume 87.8 fL (81.0-99.0); Nucleated Red Blood Cells % 0 %; Red Blood Cell Count 3.62 10^6/uL (4.20-5.40); Red Cell Dist. Width 13.6 % (11.5-14.5); White Blood Cell Count 10.6 10^3/uL (4.8-10.8)
[2024-08-14 14:47] LABS: ALT (SGPT) 19 U/L (0-35); AST (SGOT) 21 U/L (14-36); Alkaline Phosphatase 103 U/L (38-126); Blood Urea Nitrogen 14 mg/dl (7-17); Calcium 9.1 mg/dl (8.4-10.2); Carbon Dioxide 26 mmol/L (22-30); Chloride 106 mmol/L (98-107); Glucose 86 mg/dl (70-99); Potassium 4.4 mmol/L (3.5-5.1); Sodium 141 mmol/L (135-145); Total Bilirubin 0.7 mg/dl (0.2-1.3); Total Protein 6.9 g/dl (6.3-8.2); eGFR > 60.00
[2024-08-14 15:00] LABS: Mean Platelet Volume 8.7 fL (7.4-10.4); Platelet Count 616 10^3/uL (130-400)
[2024-08-14 15:14] LABS: Urine Amorphous Seen; Urine Urothelial Cell 21-25 /LPF (FEW)
[2024-08-14 15:18] LABS: Urine White Cell 90-100 /HPF (0-5)
[2024-08-14] MEDS: TYLENOL 1000 MG PO (16:24)
[2024-08-14] MEDS: INVANZ 60 MG IV (17:15)
--- NOTE | 2024-08-14 17:29 | W.PN.HOSP.TC ---
Today's Communication/Plan
-
empiric abx pending cx
Assessment / Plan
Assessment / Plan
(July 29) incisional infection
E. Coli bacteremia 07/30
Rash from Amoxicillin as a child
Gestational diabetes
P:ID, ETL CONSULTANT consults
Ertapenem to continue for now
Will add Vancomycin pending culture data
full code
see dictated note
Anticipated Discharge: > 48 hours
Subjective/Interval History
-
Date of Service: August 14, 2024
incisional pain and fullness with fever, chills and rigors onset this morning
Objective Data
-
Labs:
Laboratory Results
08/14/24
13:58
WBC 10.6
Hgb 10.3 L
Hct 31.8 L
Plt Count 616 H
Sodium 141
Potassium 4.4
Chloride 106
Carbon Dioxide 26
BUN 14
Creatinine 0.9
Glucose 86
Calcium 9.1
Total Bilirubin 0.7
AST 21
ALT 19
Alkaline Phosphatase 103
Vital Signs:
Vital Signs
Temp Pulse Resp BP Pulse Ox
100.9 F H 96 20 102/62 100
08/14/24 16:19 08/14/24 15:26 08/14/24 15:26 08/14/24 15:00 08/14/24 15:26
Review of Systems
-
History Source: Patient and Family (sister at bedside)
Constitutional: Reports Fever (101.5)
EENT: Reports No Symptoms Reported
Respiratory: Reports No Symptoms
Cardiac: Reports No Symptoms
Abdomen/GI: Reports Abdominal Pain (incisional pain)
Genitourinary: Reports No Symptoms
Skin: Reports Rash (redness surrounding incision)
Physical Exam
-
General: Well Developed, Well Nourished and No Apparent Distress
HEENT: Normocephalic, Atraumatic and Moist Mucous Membranes
Respiratory: Clear to Auscultation; Negative Wheezes, Rales or Rhonchi
Cardiac: Regular Rhythm and S1/S2
GI: Soft and Tender (in incision area)
Musculoskeletal: No Clubbing, No Cyanosis and No Edema
Neuro: Awake, Alert and Oriented
Psych: Calm
--- NOTE | 2024-08-14 20:05 | PTCARENOTE ---
patient arrived from ED via stretcher, patient aaox3 able to make needs known. IV flushed and patent. Patient ambulatory and independent.
[2024-08-14] MEDS: LR 1000 IV (20:11)
[2024-08-14] MEDS: VANCOCIN 540 MG IV (20:15)
--- NOTE | 2024-08-14 20:17 | PHA.VAN.IN ---
Assessment
- Assessment
Renal Function: Appears similar to baseline
Concomitant Antimicrobials: ERTEPENEM
- Previous Dosing Experience
Previous Regimen: 1GM IV Q12H
Date of Regimen: 07/31/24
Provided Trough of: UNKNOWN
Provided AUC of: NON-CONSULT
Patient's SCR is: Similar to previous dosing experience (07/31/24 SCR = 0.8)
Patient's weight is: Similar to previous dosing experience
AUC Dosing Plan
- Dosing Variables
Dosing Weight (kg): 87
Dosing CrCl (ml/min): 102
Vd coefficient (L/kg): 0.7
- Empiric Dosing
Initial / Loading Dose: 2GM
Maintenance Regimen: 1250MG IV Q12H
Estimated AUC (mcg*h/mL): 492
Estimated Peak (mcg*h/mL): 31.3
Estimated Trough (mcg/ml): 12.3
Estimated Half Life (H): 7.8
Pharmacokinetics Vancomycin I
- -
Patient Age: 28
Patient Sex: Female
Vancomycin Day #: 1
Indication: Genito-Urinary Tract (INCISION SITE INFECTION)
Requesting Provider: JOMAR
Height / Weight:
Height 5 ft 6 in
Actual Weight 86.999 kg
Pertinent Past Medical History: GESTATIONAL DM
- Vital Signs / Lab Results
Temp Pulse Resp BP Pulse Ox
101.1 F H 89 16 124/74 97
08/14/24 19:50 08/14/24 19:50 08/14/24 19:50 08/14/24 19:50 08/14/24 19:50
Lab Results - Hematology
08/14/24
13:58
WBC 10.6
Lab Results - Chemistry
08/14/24
13:58
BUN 14
Creatinine 0.9
Albumin 4.0
08/14/24
13:58
Lactic Acid 0.8
Lab Results - Urine
08/14/24
13:59
Urine Nitrite (Reflex) Negative
Leukocyte Esterase Rfl 3+ A
Urine WBC (Reflex) 90-100 A
Ur Squamous Epith Cells 3-5
Microbiology Results
08/14/24 13:58 Influenza Types A & B (PABLO) - Final
Nasal Swab Negative for Influenza A & B, NAAT
Negative results must be combined with clinical observations
and patient history.
Nucleic Acid Amplification test (NAAT)performed on the
[employer] platform.
[2024-08-14] MEDS: LOVENOX SC (21:03)
[2024-08-14] MEDS: TYLENOL 650 MG PO (21:03)
[2024-08-14] MEDS: ZOLOFT 100 MG PO (21:03)
[2024-08-14] MEDS: BENADRYL 25 MG IV (21:31)
[2024-08-14 21:33] LABS: Iron 41 ug/dl (37-170)
[2024-08-14 21:42] LABS: Percent Saturation 10 % (20-50); Total Iron Binding Capacity 408 ug/dl (265-497)
--- NOTE | 2024-08-14 22:26 | CON.MD ---
Consultation - Medical
-
28yo s/p C/S on 07/29/24 due to NRFHT. Labor was significant for prolonged ROM and PP course was significant for suspected endometritis, ultimately found to have E.coli bacteremia and was d/c home on cefdinir 300mg BID x 14 days. She has been
taking this antibiotic and today woke up and felt feverish. Checked her temp at home and was 101.5 Also noticed edema around the incision since delivery but today noted erythema around her incision though no drainage. She has some abdominal
discomfort above her incision as well. Not severe. She denies UTI sx. no breast sx. No heavy lochia.
PMH: Migraines
POBHx: C/S x1
PSHx: Tonsillectomy
FHx: NC
Meds: PNV, zoloft 100 mg, cefdinir
All: amoxicillin hives, imitrex- anaphylaxis
ROS: per HPI
Vitals & Labs below
CT A/P:
Postoperative changes of noted with a few small foci of endometrial gas present.
Subcutaneous edema and inflammatory change present within the anterior lower abdomen/pelvis subcutaneous tissues. Loculated fluid collection near midline measures approximately 2.9 x 2.1 x 2.3 cm, suspicious for abscess. There are reactive bilateral
inguinal lymph nodes measuring up to 2.0 cm.
IMPRESSION:
1. Postoperative changes of section. Findings highly suggestive of cellulitis and developing abscess formation within the ventral lower abdomen/pelvic wall as described.
2. A few small foci of gas within the endometrium may be postoperative; however, infectious endometritis not excluded.
Gen: nad well appearing
Abd: incision is intact, however the surrounding tissue is bright red with induration, tenderness and edema especially of the stretch amin. There is no defect noted. With a sterile q-tip I probed at her incision and was able to make a small 1cm
opening at the midline. Blood and a small amount of purulent drainage expressed. I was able to track superiorly about 2cm under the skin and then about 0.5-1cm laterally and inferior to the opening. saline was then used to irrigate the incision, the
Iodoform packing was then placed and the incision covered with gauze.
A/P: 28yo POD#16 s/p 1-LTCS c/b E. coli Bacteremia now with would infection
1. Post-op infection
-CT scan does not show intraabdominal abscess
-Imaging and Exam concerning for wound infection. Incision opened but no significant drainage expressed but a lot of induration noted. Wound culture collected.
-Explained to patient that ideally I want to keep the incision open to allow for continued drainage. This is the purpose of having the wound packing in place. This can be replaced every couple days. The incision will close via secondary intention
over the next few weeks. If however she does not clinically improve within 48 hours, then I explained there is possibility of needing to return to OR and reopen the incision for a more thorough washout
-Patient started on Ertapenem.
-given her fevers and recent E. coli Bacteremia- blood cx collected.
-Ucx pending
-ID consulted to assist with Abx mgmt.
-trend WBC. Currently no leukocytosis.
2. Pain control prn
3. Regular diet
Consultation
-
Date/Time Consultation Requested: 08/14/24 1650
Date/Time Consultation Performed: 08/14/24 1700
Requesting Provider: Dr. cooper
Performing Provider: dr. Proctor
Reason for Consultation: Wound infection
Vital Signs / Labs
-
Vital Signs and Labs:
Temp Pulse Resp BP Pulse Ox
101.1 F H 89 16 124/74 97
08/14/24 19:50 08/14/24 19:50 08/14/24 19:50 08/14/24 19:50 08/14/24 19:50
08/14/24 13:58
08/14/24 13:58
08/14/24 08/14/24
13:58 13:59
RBC 3.62 L
Hgb 10.3 L
Hct 31.8 L
MCHC 32.4 L
Plt Count 616 H
Abs Immat Gran (auto) 0.1 H
Absolute Neuts (auto) 8.6 H
Immature Gran % 0.7 H
Neutrophils % 81.0 H
Lymphocytes % 12.1 L
% Saturation 10 L
Ur Occult Blood Reflex 1+ A
Leukocyte Esterase Rfl 3+ A
Urine RBC 3-6 A
Urine WBC (Reflex) 90-100 A
Blood Cx & Wound Cx collected.
[2024-08-14 23:45] LABS: Ferritin 31.4 ng/ml (6.24-137)
[2024-08-15] MEDS: VANCOCIN 275 MG IV ×2 (05:01→17:10)
[2024-08-15 07:00] VITALS: BP 101/67
[2024-08-15] MEDS: PRENATAL PLUS 1 TABLET PO (07:13)
[2024-08-15] MEDS: TYLENOL 650 MG PO ×3 (07:17→19:19)
[2024-08-15 07:41] LABS: Hematocrit 31.3 % (37.0-47.0); Hemoglobin 10.3 g/dL (12.0-16.0); Mean Corp Hgb Conc. 32.9 g/dL (33.0-37.0); Mean Corpuscular Hgb 28.8 pg (27.0-31.0); Mean Corpuscular Volume 87.4 fL (81.0-99.0); Mean Platelet Volume 8.5 fL (7.4-10.4); Platelet Count 511 10^3/uL (130-400); Red Blood Cell Count 3.58 10^6/uL (4.20-5.40); Red Cell Dist. Width 13.7 % (11.5-14.5)
[2024-08-15 08:11] LABS: ALT (SGPT) 17 U/L (0-35); AST (SGOT) 19 U/L (14-36); Albumin 3.3 g/dl (3.5-5.0); Alkaline Phosphatase 87 U/L (38-126); Blood Urea Nitrogen 10 mg/dl (7-17); Carbon Dioxide 25 mmol/L (22-30); Chloride 110 mmol/L (98-107); Estimated Creatinine Clearance 102 ml/min; Glucose 111 mg/dl (70-99); Potassium 4.4 mmol/L (3.5-5.1); Sodium 141 mmol/L (135-145); Total Bilirubin 0.5 mg/dl (0.2-1.3); Total Protein 6.2 g/dl (6.3-8.2); eGFR > 60.00
[2024-08-15 08:59] LABS: Vitamin B12 511 pg/ml (239-931)
--- NOTE | 2024-08-15 08:59 | PHA.VAN.FU ---
Vancomycin Assessment / Plan
- Assessment
Renal Function: Stable
WBC's are: WNL
In the past 24 hrs, patient has been: Febrile (Tmax 101.1 F 08/14 19:50)
Concomitant Antimicrobials: ertapenem
- Dosing Plan
Continue: Vanc 1250mg Q12H
- Monitoring Plan
No level(s) ordered at this time: consider levels in next few days
- Follow Up
Pharmacy will continue to follow.
Vancomycin Follow UP
- -
Patient Age: 28
Patient Sex: Female
Vancomycin Day #: 2
Indication: Genito-Urinary Tract
Requesting Provider: Dr. Reynolds
Pertinent Antimicrobial Allergies:
amoxicillin - hives
Height / Weight:
Height 5 ft 6 in
Actual Weight 86.999 kg
Pertinent Past Medical History: BMI ~31
- Vital Signs / Lab Results
Temp Pulse Resp BP Pulse Ox
99.1 F 86 18 101/67 98
08/15/24 07:00 08/15/24 07:00 08/15/24 07:00 08/15/24 07:00 08/15/24 07:00
Lab Results - Hematology
08/14/24 08/15/24
13:58 07:20
WBC 10.6 6.0
Lab Results - Chemistry
08/14/24 08/15/24
13:58 07:20
BUN 14 10
Creatinine 0.9 0.9
Estimated Creat Clear 102
Albumin 4.0 3.3 L
08/14/24
13:58
Lactic Acid 0.8
Lab Results - Urine
08/14/24
13:59
Urine Nitrite (Reflex) Negative
Leukocyte Esterase Rfl 3+ A
Ur Squamous Epith Cells 3-5
Microbiology Results
08/14/24 13:58 Influenza Types A & B (PABLO) - Final
Nasal Swab Negative for Influenza A & B, NAAT
Negative results must be combined with clinical observations
and patient history.
Nucleic Acid Amplification test (NAAT)performed on the
[employer] platform.
--- NOTE | 2024-08-15 12:15 | WOUNDNOTE ---
ANDREY RN NOTE: Patient admitted with infected C section site. S/P bedside I&D done of Abscess by Dr. Miramontes. Changed packing, depth 3cm, with some undermining proximally and laterally. Suture line site with redness surrounding. Wound culture pending,
I&D on consult. Confirmed with Dr. Miramontes dressings and can follow up with wound care center as outpatient. Patient had allot of pain during dressing change, needed frequent breaks. Recommended to patient to coordinate dressing changes with nurses
to take pain medication prior, if permitted with breast feeding. Will update wound care orders and recommend visiting nurses to follow at home. Patient unable to do own packing and she states will not be able to handle dressing changes. Will
follow as needed.
[2024-08-15] MEDS: LR 1000 IV (12:16)
--- NOTE | 2024-08-15 12:22 | W.PN.OBG.DWH ---
Today's Communication / Plan
-
appreciate wound care and ID input
await cx results
recommend premedicate prior to packing change
Assessment/Plan
-
POD#17 E coli hyperemia
wound abscess, drained
on vanco
Subjective Data
-
no complaints
seen by wound care
Objective Data
-
Laboratory Results
08/15/24 07:20
08/15/24 07:20
Vital Signs
Temp Pulse Resp BP Pulse Ox
99.1 F 86 18 101/67 98
08/15/24 07:00 08/15/24 07:00 08/15/24 07:00 08/15/24 07:00 08/15/24 07:00
pleas wayne
lungs cl
cor rrr
abd + bs soft, fundus nt
incis: hyperemic, packing just changed, no drainage
ext nt
--- NOTE | 2024-08-15 13:32 | W.PN.HOSP.TC ---
Today's Communication/Plan
-
await input from ID and results of cultures
Assessment / Plan
Assessment / Plan
(July 29) incisional infection
wound I&D pending
Pt asked if she can nurse while on abx, requested check with ID, but until gets answer, would not nurse
E. Coli bacteremia 07/30
felt to be due to chorioamnionnitis
Rash from Amoxicillin as a child
Gestational diabetes
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
Ertapenem to continue for now
Will add Vancomycin pending culture data
full code
see dictated note
Anticipated Discharge: > 48 hours
Subjective/Interval History
-
Date of Service: August 15, 2024
in good spirits
Objective Data
-
Labs:
Laboratory Results
08/15/24
07:20
WBC 6.0
Hgb 10.3 L
Hct 31.3 L
Plt Count 511 H
Sodium 141
Potassium 4.4
Chloride 110 H
Carbon Dioxide 25
BUN 10
Creatinine 0.9
Glucose 111 H
Calcium 9.0
Total Bilirubin 0.5
AST 19
ALT 17
Alkaline Phosphatase 87
Vital Signs:
Vital Signs
Temp Pulse Resp BP Pulse Ox
99.1 F 86 18 101/67 98
08/15/24 07:00 08/15/24 07:00 08/15/24 07:00 08/15/24 07:00 08/15/24 07:00
I&O
08/14/24 08/15/24 08/16/24
06:59 06:59 06:59
Intake Total 480 / 480
Balance 480 / 480
Review of Systems
-
History Source: Patient and Family (sister, Valery)
Constitutional: Reports Fever (101.1)
EENT: Reports No Symptoms Reported
Respiratory: Reports No Symptoms
Cardiac: Reports No Symptoms
Abdomen/GI: Reports Abdominal Pain; Denies Nausea, Vomiting or Diarrhea
Genitourinary: Reports No Symptoms
Musculoskeletal: Reports No Symptoms
Physical Exam
-
General: Well Developed, Well Nourished and No Apparent Distress
HEENT: Normocephalic, Atraumatic and Moist Mucous Membranes
Respiratory: Clear to Auscultation; Negative Wheezes, Rales or Rhonchi
Cardiac: Regular Rhythm and S1/S2
GI: Soft and Tender (in incision area)
Musculoskeletal: No Clubbing, No Cyanosis and No Edema
Skin: Other (tissue surrounding [id number] incisional site note as warm or tender)
Neuro: Awake, Alert and Oriented
Psych: Calm
--- NOTE | 2024-08-15 13:47 | CM ---
CM reviewed chart, patient seen bedside with sister, initial assessment completed. Patient resides with her and son in a one level home plus basement. Patient recently delviered son, Rick, born on 07/29/24, currently with patients
and sister in law. Patient is independent with ADLs/IADLs, denies VN. Patient confirms PCP Terri Bee, [facility], confirms prescription coverage. Patient denies insecurities at home, confirms she has everything she needs
for son at home. CM will continue to follow for all discharge planning needs.
Plan; home no needs, watch for VN/IV antibiotic needs.
--- NOTE | 2024-08-15 14:35 | LACTATION ---
koko is pumping breastmilk during her hospital stay. she is using her own pump. she says she does not need storage bottles or any supplies.
[2024-08-15 15:00] VITALS: BP 114/68
[2024-08-15] MEDS: INVANZ 60 MG IV (15:07)
[2024-08-15] MEDS: LOVENOX SC (17:17)
--- NOTE | 2024-08-15 20:39 | CON.ID ---
Consultation
-
Date/Time Consultation Requested: July
Date/Time Consultation Performed: July
Requesting Provider: Dr Reynolds
Performing Provider: Lay Bazan MD
Reason for Consultation: Bacteremia
Chief Complaint / Past History
Chief Complaint
Fever
History of Present Illness
The patient was admitted by way of the emergency room 08/14/2024 with the chief complaint of fever at home of 101.5 after being discharged home from the hospital with oral antibiotics for E. coli bacteremia status post on 07/29/2024. The
patient complained of chills along with bodyaches and took Tylenol for improvement. She notes redness and swelling around her incision with some slight pus drainage. Her only other symptom is headache.
Past History
Past Medical History: None
Past Surgical History: and Tonsilectomy
Allergy History:
amoxicillin Allergy (Verified 08/14/24 11:16)
Hives
sumatriptan (From Imitrex) Allergy (Verified 08/14/24 11:16)
Anaphylaxis
Medications Reviewed: Yes
Social History
Tobacco: Non-Smoker
Alcohol: Occasional
Drug: None
Personal:
Living: With Family
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
Family History
Family History: Not Pertinent
Review of Systems
Review of Systems
General: Fever and Chills
All systems: All other systems were reviewed and were negative
Vital Signs
Temp Pulse Resp BP Pulse Ox
99 F 80 18 114/68 99
08/15/24 15:00 08/15/24 15:00 08/15/24 15:00 08/15/24 15:00 08/15/24 15:00
Physical Exam
Physical Exam
Constitutional: Well Developed, Comfortable and Non-toxic
Head: Normocephalic
Eyes: Pupils Equal, Pupils Round, No Conjunctival Hemorrhage and Sclera Anicteric
Pharynx: Benign
Oral: No Thrush and No Ulcers
Cardiovascular: Regular Rate
Pulmonary: Clear
Gastrointestinal: Soft, Non Tender, Decreased Bowel Sounds, No Rebound and No Guarding
Genito-Urinary: Suprapubic Tenderness
Skin: Warm and Dry
Wound: Other (Suprapubic incision slightly red with slight purulent drainage on left minimal tenderness improved per patient description)
Neurological: Awake, Alert, Oriented and AO x 3
Psychological: Calm
Lines: PIV
Lab / Diagnostic Study Results
08/15/24 07:20
08/15/24 07:20
Abs Immat Gran (auto) 0.1 10^3/uL (0-0.05) H 08/14/24 13:58
Absolute Neuts (auto) 8.6 10^3/uL (1.4-6.5) H 08/14/24 13:58
Absolute Lymphs (auto) 1.3 10^3/uL (1.2-3.4) 08/14/24 13:58
Absolute Monos (auto) 0.6 10^3/uL (0.1-0.6) 08/14/24 13:58
Absolute Basos (auto) 0.0 10^3/uL (0-0.2) 08/14/24 13:58
Immature Gran % 0.7 % (0-0.5) H 08/14/24 13:58
Neutrophils % 81.0 % (42.2-75.2) H 08/14/24 13:58
Lymphocytes % 12.1 % (20.5-51.1) L 08/14/24 13:58
Monocytes % 5.3 % (1.7-9.3) 08/14/24 13:58
Eosinophils % 0.5 % (0-6) 08/14/24 13:58
Basophils % 0.4 % (0-2) 08/14/24 13:58
Lactic Acid 0.8 mmol/L (0.7-2.0) 08/14/24 13:58
Ur Squamous Epith Cells 3-5 /LPF (Few) 08/14/24 13:59
Microbiology Results
Micro:
08/14/24 13:58 Blood Culture - Preliminary
Blood/Venous Positive culture in progress
Gram Stain - Preliminary
08/14/24 14:25 Blood Culture - Preliminary
Blood/Venous No Growth in 24 hours- Final report to follow
08/14/24 18:54 Wound Culture - Pending
Abscess Gram Stain - Preliminary
08/14/24 13:59 Urine Culture - Final
Urine No Significant Growth
08/14/24 13:58 Influenza Types A & B (PABLO) - Final
Nasal Swab Negative for Influenza A & B, NAAT
Negative results must be combined with clinical observations
and patient history.
Nucleic Acid Amplification test (NAAT)performed on the
[employer] platform.
Assessment / Plan
1.E. coli bacteremia status post with oral antibiotics prescribed Upon discharge
2.The patient was discharged home with oral antibiotic with Cefdinir with fever 101.5 at home along with chills and malaise with return to ED
3. Upon readmission the patient was recultured and started on broad-spectrum antibiotics with Vancomycin/ Ertapenem
4. CT imaging concerning for abdominal wall cellulitis and endometritis cannot be excluded abscess development possible ventral lower abdominal wall
5. WBC now 6.0 with T 99.1 With patient feeling much improved
6. Culture results are pending and antibiotic will be provided based on results of repeat microbiology
Thank you for calling infectious disease consultation. The ID team will continue to follow with you.
[2024-08-15] MEDS: ZOLOFT 100 MG PO (21:12)
[2024-08-15 23:37] VITALS: BP 121/76
[2024-08-16] MEDS: VANCOCIN 275 MG IV ×2 (05:14→17:01)
[2024-08-16] MEDS: PRENATAL PLUS 1 TABLET PO (07:13)
[2024-08-16 07:44] VITALS: BP 119/72
[2024-08-16] MEDS: TYLENOL 650 MG PO ×2 (10:24→17:07)
--- NOTE | 2024-08-16 11:08 | PHA.VAN.FU ---
Vancomycin Assessment / Plan
- Assessment
Renal Function: Stable
WBC's are: WNL
In the past 24 hrs, patient has been: Afebrile
Concomitant Antimicrobials: ertapenem
- Dosing Plan
Continue: Vanc 1250mg Q12H
- Monitoring Plan
No level(s) ordered at this time: consider levels in next few days
- Follow Up
Pharmacy will continue to follow.
Vancomycin Follow UP
- -
Patient Age: 28
Patient Sex: Female
Vancomycin Day #: 3
Indication: Genito-Urinary Tract
Requesting Provider: Dr. Reynolds / Dr. Bazan
Pertinent Antimicrobial Allergies:
amoxicillin - hives
Height / Weight:
Height 5 ft 6 in
Actual Weight 86.999 kg
Pertinent Past Medical History: BMI ~31
- Vital Signs / Lab Results
Temp Pulse Resp BP Pulse Ox
98.4 F 72 18 119/72 97
08/16/24 07:44 08/16/24 07:44 08/16/24 07:44 08/16/24 07:44 08/16/24 07:44
Lab Results - Hematology
08/14/24 08/15/24
13:58 07:20
WBC 10.6 6.0
Lab Results - Chemistry
08/14/24 08/15/24
13:58 07:20
BUN 14 10
Creatinine 0.9 0.9
Estimated Creat Clear 102
Albumin 4.0 3.3 L
08/14/24
13:58
Lactic Acid 0.8
Microbiology Results
08/14/24 13:58 Blood Culture - Preliminary
Blood/Venous Coagulase neg. staphylococcus
Additional testing on request
Gram Stain - Preliminary
08/14/24 18:54 Wound Culture - Preliminary
Abscess Gram negative bacilli
Gram Stain - Preliminary
08/14/24 14:25 Blood Culture - Preliminary
Blood/Venous No Growth in 24 hours- Final report to follow
08/14/24 13:59 Urine Culture - Final
Urine No Significant Growth
08/14/24 13:58 Influenza Types A & B (APBLO) - Final
Nasal Swab Negative for Influenza A & B, NAAT
Negative results must be combined with clinical observations
and patient history.
Nucleic Acid Amplification test (NAAT)performed on the
[employer] platform.
--- NOTE | 2024-08-16 13:54 | W.PN.HOSP.TC ---
Today's Communication/Plan
-
await further identification of bacteria
Assessment / Plan
Assessment / Plan
(July 29) incisional infection
wound I&D pending
Pt asked if she can nurse while on abx, requested check with ID, but until gets answer, would not nurse. Pt states she was told that she could
wound cx demonstrates Gm Neg bacilli
E. Coli bacteremia 07/30
felt to be due to chorioamnionitis as per Dr. Vargas note from prior hospitalization
Rash from Amoxicillin as a child
Gestational diabetes
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
Ertapenem to continue for now
Will add Vancomycin pending culture data
full code
see dictated note
Anticipated Discharge: > 48 hours
Subjective/Interval History
-
Date of Service: August 16, 2024
scar less tender
Objective Data
-
Vital Signs:
Vital Signs
Temp Pulse Resp BP Pulse Ox
98.4 F 72 18 119/72 97
08/16/24 07:44 08/16/24 07:44 08/16/24 07:44 08/16/24 07:44 08/16/24 07:44
I&O
08/15/24 08/16/24 08/17/24
06:59 06:59 06:59
Intake Total 480 / 480
Balance 480 / 480
Review of Systems
-
History Source: Patient and Family ( in room)
Constitutional: Reports Fever (101.1)
EENT: Reports No Symptoms Reported
Respiratory: Reports No Symptoms
Cardiac: Reports No Symptoms
Abdomen/GI: Reports Abdominal Pain; Denies Nausea, Vomiting or Diarrhea
Genitourinary: Reports No Symptoms
Musculoskeletal: Reports No Symptoms
Physical Exam
-
General: Well Developed, Well Nourished and No Apparent Distress
HEENT: Normocephalic, Atraumatic and Moist Mucous Membranes
Respiratory: Clear to Auscultation; Negative Wheezes, Rales or Rhonchi
Cardiac: Regular Rhythm and S1/S2
GI: Soft and Tender (in incision area, but less pronounced)
Musculoskeletal: No Clubbing, No Cyanosis and No Edema
Skin: Other (tissue surrounding incisional site note as warm or tender, but redness above incision has markedly decreased)
Neuro: Awake, Alert and Oriented
Psych: Calm
[2024-08-16] MEDS: INVANZ 60 MG IV (15:19)
--- NOTE | 2024-08-16 15:26 | CM ---
CM reviewed chart, patient remains on IV antibiotics. CM will continue to follow for home IV antibiotic, VN needs.
Plan; home with family, watch for home infusion/VN needs upon d/c.
[2024-08-16 16:00] VITALS: BP 110/74
[2024-08-16] MEDS: LOVENOX SC (17:01)
[2024-08-16] MEDS: LOVENOX 40 MG SC (17:07)
--- NOTE | 2024-08-16 17:38 | W.PN.OBG.DWH ---
Today's Communication / Plan
-
- continue antibiotics
- repeat blood cultures pending
Assessment/Plan
-
Patient is a 28yo POD#18 s/p PLTCS-NRFHTs, complicated by E coli bacteremia now with wound infection
- Tlast 101.1 on 08/14
- Erythema around incision improving
- continue with packing changes with wound care
- continue on ertapenem and vancomycin per ID
- repeat blood cultures pending
- wound cultures prelim with gram negative bacilli
Subjective Data
-
No complaints. She is feeling much better. No further fevers or chills. Has some incisional pain. No heavy lochia. Tolerating a regular diet. Voiding spontaneously
Objective Data
-
Laboratory Results
08/15/24 07:20
08/15/24 07:20
Vital Signs
Temp Pulse Resp BP Pulse Ox
98.0 F 71 16 110/74 98
08/16/24 16:00 08/16/24 16:00 08/16/24 16:00 08/16/24 16:00 08/16/24 16:00
General: well appearing
Abd: incision w/ erythema surrounding- per patient has decreased a lot, packing in place with minimal drainage
--- NOTE | 2024-08-16 19:05 | W.PN.ID1 ---
Date of Service
Date of Service: August 16, 2024
Today's Communication
repeat blood culture
Assessment / Plan
1.E. coli bacteremia status post with IV antibiotics to be prescribed Upon discharge
2.The patient was discharged home with oral antibiotic with Cefdinir with fever 101.5 at home along with chills and malaise with return to ED
3. Upon readmission the patient was recultured and started on broad-spectrum antibiotics with Vancomycin/ Ertapenem
4. CT imaging concerning for abdominal wall cellulitis and endometritis cannot be excluded abscess development possible ventral lower abdominal wall
5. WBC now 6.0 with T 98 With patient feeling much improved
6. Culture results are pending and antibiotic will be provided based on results of repeat microbiology
Chief Complaint
-: Fever, Leukocytosis and Other (wound infection)
Subjective / Review of Systems
Review of Systems: No Fever, No Chills, No Headache, No Pharyngitis, No Stiff Neck, No Swollen Lymph Nodes, No Cough, No Sputum Production, No Chest Pain, No Palpitations, No Abdominal Pain, No Nausea, No Vomiting, No Diarrhea, No Dysuria and No
Skin Rash (wound with packing in place with some continued discharge of purulent material)
Vital Signs / Physical Exam
Vital Signs
Vital Signs
Temp Pulse Resp BP Pulse Ox
98.0 F 71 16 110/74 98
08/16/24 16:00 08/16/24 16:00 08/16/24 16:00 08/16/24 16:00 08/16/24 16:00
Physical Exam
Constitutional: No Acute Distress, Well Developed, Comfortable, Acutely Ill and Non-toxic
Head: Normocephalic
Eyes: Pupils Equal, Pupils Round, No Conjunctival Hemorrhage and Sclera Anicteric
Oropharyngeal: Benign
Cardiovascular: Regular Rate
Pulmonary: Clear and Non Labored
Gastrointestinal: Soft, Tender, Non Distended, Decreased Bowel Sounds, No Rebound and No Guarding
Genito-Urinary: Suprapubic Tenderness
Skin: Warm, Dry and Other (infected incision site at site of suprapubic incision for )
Wound: Other (CS incision)
Neurological: Awake, Alert, Oriented, AO x 3 and No Motor Deficits
Psychological: Calm
Lines: PIV
Objective Data
Lab Data
Lab Results
08/15/24 07:20
08/15/24 07:20
Estimated Creat Clear 102 ml/min 08/15/24 07:20
Lactic Acid 0.8 mmol/L (0.7-2.0) 08/14/24 13:58
Total Bilirubin 0.5 mg/dl (0.2-1.3) 08/15/24 07:20
AST 19 U/L (14-36) 08/15/24 07:20
ALT 17 U/L (0-35) 08/15/24 07:20
Alkaline Phosphatase 87 U/L (38-126) 08/15/24 07:20
Most recent labs reviewed.
Microbiology: Report Reviewed
Micro Results:
08/14/24 14:25 Blood Culture - Preliminary
Blood/Venous No Growth in 48 hours- Final report to follow
08/14/24 13:58 Blood Culture - Preliminary
Blood/Venous Coagulase neg. staphylococcus
Additional testing on request
Gram Stain - Preliminary
08/14/24 18:54 Wound Culture - Preliminary
Abscess Gram negative bacilli
Gram Stain - Preliminary
08/14/24 13:59 Urine Culture - Final
Urine No Significant Growth
08/14/24 13:58 Influenza Types A & B (PABLO) - Final
Nasal Swab Negative for Influenza A & B, NAAT
Negative results must be combined with clinical observations
and patient history.
Nucleic Acid Amplification test (NAAT)performed on the
[employer] platform.
CT Scan: Report Reviewed (cellulitis with possible absccess formation lower abdominal /pelvis wall)
Care Review
Plan reviewed with: Nurse
Total Time Spent with Patient (in minutes): 35
[2024-08-16] MEDS: ZOLOFT 100 MG PO (21:33)
[2024-08-16 23:49] VITALS: BP 125/67
[2024-08-17] MEDS: VANCOCIN 275 MG IV (05:38)
[2024-08-17 07:02] VITALS: BP 118/75
[2024-08-17 08:02] LABS: % Basophils 0.7 % (0-2); % Eosinophils 2.9 % (0-6); % Immature Granulocytes 0.7 % (0-0.5); % Lymphocytes 26.7 % (20.5-51.1); % Monocytes 6.1 % (1.7-9.3); % Neutrophils 62.9 % (42.2-75.2); Absolute Basophils 0.1 10^3/uL (0-0.2); Absolute Eosinophils 0.2 10^3/uL (0-0.7); Absolute Immature Granulocytes 0.1 10^3/uL (0-0.05); Absolute Monocytes 0.5 10^3/uL (0.1-0.6); Absolute Neutrophils 4.7 10^3/uL (1.4-6.5); Hematocrit 32.7 % (37.0-47.0); Hemoglobin 10.7 g/dL (12.0-16.0); Mean Corp Hgb Conc. 32.7 g/dL (33.0-37.0); Mean Corpuscular Hgb 28.4 pg (27.0-31.0); Mean Corpuscular Volume 86.7 fL (81.0-99.0); Mean Platelet Volume 8.4 fL (7.4-10.4); Nucleated Red Blood Cells % 0 %; Platelet Count 568 10^3/uL (130-400); Red Blood Cell Count 3.77 10^6/uL (4.20-5.40); Red Cell Dist. Width 13.7 % (11.5-14.5); White Blood Cell Count 7.5 10^3/uL (4.8-10.8)
[2024-08-17] MEDS: TYLENOL 650 MG PO (08:28)
[2024-08-17] MEDS: PRENATAL PLUS 1 TABLET PO (08:28)
--- NOTE | 2024-08-17 10:23 | CM ---
Patient seen at bedside
Cont on IV antibiotics
PLAN: Home, watch for VN/IV antibiotic needs when discharged
[2024-08-17 10:26] LABS: ALT (SGPT) 17 U/L (0-35); AST (SGOT) 19 U/L (14-36); Albumin 3.5 g/dl (3.5-5.0); Alkaline Phosphatase 82 U/L (38-126); Blood Urea Nitrogen 14 mg/dl (7-17); Calcium 9.1 mg/dl (8.4-10.2); Carbon Dioxide 29 mmol/L (22-30); Chloride 106 mmol/L (98-107); Estimated Creatinine Clearance 102 ml/min; Glucose 80 mg/dl (70-99); Potassium 5.1 mmol/L (3.5-5.1); Sodium 140 mmol/L (135-145); Total Bilirubin 0.4 mg/dl (0.2-1.3); Total Protein 6.4 g/dl (6.3-8.2); eGFR > 60.00
--- NOTE | 2024-08-17 13:34 | W.PN.HOSP.TC ---
Today's Communication/Plan
-
dc Vancomycin
Assessment / Plan
Assessment / Plan
(July 29) incisional infection
wound I&D pending. ID will decide on abx once wound cx results known
WBC 10.6-->6.0-->7.5k
Pt asked if she can nurse while on abx, requested check with ID, but until gets answer, would not nurse. Pt states she was told that she could nurse
wound cx demonstrates Gm Neg bacilli. discussed with ID, okay to stop Vancomycin
E. Coli bacteremia 07/30
felt to be due to chorioamnionitis as per Dr. Vargas note from prior hospitalization
Rash from Amoxicillin as a child
Gestational diabetes
P:ID, PEDIATRIC ASSISTANT consults
Ertapenem to continue for now
full code
see dictated note
Anticipated Discharge: Within 24 hours
Subjective/Interval History
-
Date of Service: August 17, 2024
generally feels better
Objective Data
-
Labs:
Laboratory Results
08/17/24
07:42
WBC 7.5
Hgb 10.7 L
Hct 32.7 L
Plt Count 568 H
Sodium 140
Potassium 5.1
Chloride 106
Carbon Dioxide 29
BUN 14
Creatinine 0.9
Glucose 80
Calcium 9.1
Total Bilirubin 0.4
AST 19
ALT 17
Alkaline Phosphatase 82
Vital Signs:
Vital Signs
Temp Pulse Resp BP Pulse Ox
98.1 F 65 18 118/75 98
08/17/24 07:02 08/17/24 07:02 08/17/24 07:02 08/17/24 07:02 08/17/24 08:21
I&O
06/08/17/24 08/18/24
06:59 06:59 06:59
Intake Total 0 / 1409
Balance 1409
Review of Systems
-
History Source: Patient, Family ( in room) and Coordinated Provider (Shweta, from unit in room during entire exam)
Constitutional: Reports Fever (101.1 on 08/14 19:50, afebrile since)
EENT: Reports No Symptoms Reported
Respiratory: Reports No Symptoms
Cardiac: Reports No Symptoms
Abdomen/GI: Reports Abdominal Pain; Denies Nausea, Vomiting or Diarrhea
Genitourinary: Reports No Symptoms
Musculoskeletal: Reports No Symptoms
Physical Exam
-
General: Well Developed, Well Nourished and No Apparent Distress
HEENT: Normocephalic, Atraumatic and Moist Mucous Membranes
Respiratory: Clear to Auscultation; Negative Wheezes, Rales or Rhonchi
Cardiac: Regular Rhythm and S1/S2
GI: Soft and Tender (in incision area, but less pronounced)
Musculoskeletal: No Clubbing, No Cyanosis and No Edema
Skin: Other (tissue surrounding incisional site not as warm or tender, but redness above incision has markedly resolved)
Neuro: Awake, Alert and Oriented
Psych: Calm
[2024-08-17 15:40] VITALS: BP 113/73
[2024-08-17] MEDS: LOVENOX 40 MG SC (16:14)
[2024-08-17] MEDS: INVANZ 60 MG IV (16:14)
--- NOTE | 2024-08-17 19:41 | W.PN.ID1 ---
Date of Service
Date of Service: August 17, 2024
Today's Communication
likley D/ C tomorrow
Assessment / Plan
1.E. coli bacteremia status post with IV antibiotics to be prescribed Upon discharge
2.The patient was discharged home with oral antibiotic with Cefdinir with fever 101.5 at home along with chills and malaise with return to ED
3. Upon readmission the patient was recultured and started on broad-spectrum antibiotics with Vancomycin/ Ertapenem
4. CT imaging concerning for abdominal wall cellulitis and endometritis cannot be excluded abscess development possible ventral lower abdominal wall
5. WBC now 6.0 with T 98 With patient feeling much improved
6. Culture results are pending and antibiotic will be provided based on results of repeat microbiology with likely D/C tomorrow if repeat blood cultures with no growth at 48 H
Chief Complaint
-: Other (wound infection)
Subjective / Review of Systems
Review of Systems: No Fever, No Chills, No Headache, No Pharyngitis, No Stiff Neck, No Swollen Lymph Nodes, No Cough, No Sputum Production, No Chest Pain, No Palpitations, No Abdominal Pain, No Nausea, No Vomiting, No Diarrhea, No Dysuria and No
Skin Rash (surgical wound with decreased erythema )
Vital Signs / Physical Exam
Vital Signs
Vital Signs
Temp Pulse Resp BP Pulse Ox
98.1 F 70 18 113/73 97
08/17/24 15:40 08/17/24 15:40 08/17/24 15:40 08/17/24 15:40 08/17/24 15:40
Physical Exam
Constitutional: No Acute Distress, Well Developed, Comfortable and Non-toxic
Head: Normocephalic
Eyes: Pupils Equal, Pupils Round, No Conjunctival Hemorrhage and Sclera Anicteric
Oropharyngeal: Benign
Cardiovascular: Regular Rate
Pulmonary: Clear and Non Labored
Gastrointestinal: Soft, Non Tender, Non Distended, Decreased Bowel Sounds, No Rebound and No Guarding
Genito-Urinary: Suprapubic Tenderness (mild)
Extremities: Other (good ROM)
Skin: Warm and Dry
Neurological: Awake, Alert, Oriented, AO x 3 and No Motor Deficits
Psychological: Calm
Lines: PIV
Objective Data
Lab Data
Lab Results
08/17/24 07:42
08/17/24 07:42
Estimated Creat Clear 102 ml/min 08/17/24 07:42
Lactic Acid 0.8 mmol/L (0.7-2.0) 08/14/24 13:58
Total Bilirubin 0.4 mg/dl (0.2-1.3) 08/17/24 07:42
AST 19 U/L (14-36) 08/17/24 07:42
ALT 17 U/L (0-35) 08/17/24 07:42
Alkaline Phosphatase 82 U/L (38-126) 08/17/24 07:42
Most recent labs reviewed.
Microbiology: Report Reviewed (will evaluate results @ 48 H)
Micro Results:
08/14/24 14:25 Blood Culture - Preliminary
Blood/Venous No Growth in 72 hours- Final report to follow
08/14/24 18:54 Wound Culture - Preliminary
Abscess Gram negative bacilli
Gram Stain - Preliminary
08/16/24 21:51 Blood Culture - Pending
Blood/Venous
08/16/24 21:51 Blood Culture - Pending
Blood/Venous
08/14/24 13:58 Blood Culture - Preliminary
Blood/Venous Coagulase neg. staphylococcus
Additional testing on request
Gram Stain - Preliminary
08/14/24 13:59 Urine Culture - Final
Urine No Significant Growth
08/14/24 13:58 Influenza Types A & B (PABLO) - Final
Nasal Swab Negative for Influenza A & B, NAAT
Negative results must be combined with clinical observations
and patient history.
Nucleic Acid Amplification test (NAAT)performed on the
[employer] platform.
Care Review
Total Time Spent with Patient (in minutes): 35
[2024-08-17] MEDS: ZOLOFT 100 MG PO (21:52)
[2024-08-17 23:00] VITALS: BP 115/78
--- NOTE | 2024-08-17 23:33 | W.PN.OBG.DWH ---
Today's Communication / Plan
-
Continue with IV antibiotic. Awaiting 48-hour read on blood culture results. Plan is for patient to go home on IV antibiotics once blood cultures negative x 48 hours. Recommendations per ID..
Assessment/Plan
-
1. day #9 s/p primary LTCS-NR FHTs complicated by E. coli bacteremia. She was discharged to home from her prior admission with cefdinir.
2. Patient readmitted now with wound infection/cellulitis. Blood culture 08/14/2024 showed coag negative Staphylococcus.
-Patient had received vancomycin/ertapenem.
Preliminary wound culture showing gram-negative bacilli therefore vancomycin was discontinued. Blood culture showed no growth in 24 hours (collected 08/16/2024).
WBC 7.5 slightly up from 6.0 yesterday. Patient feeling improved.
Awaiting blood culture read at 48 hours. Plan is for discharge to home, (hopefully tomorrow) once blood culture result shows no growth at 48 hours. Culture results are pending and antibiotic determination based on results of repeat microbiology
and as per ID recommendation.
Ertapenem felt safe for breast-feeding. Patient is aware and has been pumping her milk.
Will await final culture results tomorrow. Patient clinically improved.
Subjective Data
-
Late entry note. 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
Nohemi reports she is feeling much better. Denies any fever, chills, abdominal or pelvic pain. Lochia is minimal. She has been pumping. She is anxious to go home. Denies dysuria.Feeling well otherwise. Has good family support. No
depression.
Objective Data
-
Laboratory Results
08/17/24 07:42
08/17/24 07:42
Vital Signs
Temp Pulse Resp BP Pulse Ox
98.1 F 70 18 113/73 97
08/17/24 15:40 08/17/24 15:40 08/17/24 15:40 08/17/24 15:40 08/17/24 15:40
VSS afebrile
General Appearance: Appears nontoxic, no acute distress. She is conversing/visiting with her and parents.
Heart: Regular rate
Lungs: No labored breathing
Abdomen: Soft ND NT, fundus firm. Incision slightly indurated, mild erythema superiorly. Packing noted. No purulent discharge.
Extremities: No calf pain or tenderness
[2024-08-18 07:05] VITALS: BP 119/70
[2024-08-18] MEDS: PRENATAL PLUS 1 TABLET PO (07:57)
--- NOTE | 2024-08-18 11:30 | CM ---
Addendum entered by Ana Cordoba 08/18/24 15:53:
Referral to VN for wound needs, patient and agreeable.
Plan; home with [facility]
Addendum entered by Ana Cordoba 08/18/24 12:49:
Patient seen with , awaiting review of benefits, Jocelyn from [facility] will do bedside teaching today. Midline placed.
Original Note:
CM reviewed chart, reviewed with ID and Hospitalist, patient will require IV antibiotics upon discharge- script sent to Jocelyn at [facility], will review benefits and come to hospital for bedside teach. [facility] will confirm nursing/delivery of
mediation availability for tomorrow for a potential discharge for today. Midline to be placed. CM will continue to follow for all discharge planning needs.
Plan; home with [facility] IV antibiotics, confirming benefits/delivery/nursing availability
[2024-08-18] MEDS: TYLENOL 650 MG PO (13:29)
--- NOTE | 2024-08-18 14:48 | W.PN.ID1 ---
Date of Service
Date of Service: August 18, 2024
Today's Communication
patient discussed with matt woo, nurse, hospitalist,
Assessment / Plan
1.E. coli bacteremia status post with IV antibiotics to be prescribed Upon discharge Ceftriaxone @ Gm IV Q 24 H with last dose 08/23/24
2.The patient was discharged home with oral antibiotic with Cefdinir with fever 101.5 at home along with chills and malaise with return to ED
3. Upon readmission the patient was recultured and started on broad-spectrum antibiotics with Vancomycin/ Ertapenem
4. CT imaging concerning for abdominal wall cellulitis and endometritis cannot be excluded abscess development possible ventral lower abdominal wall
5. WBC now 4.8 with T 98.4 With patient feeling much improved
6. Culture results are pending and antibiotic ordered for IV at home via mid-line with last dose 08/23/24 with subsequent removal of midline
Chief Complaint
-: Other (E.coli bacteremia s/p CS with surgical wound infection improved)
Subjective / Review of Systems
Review of Systems: No Fever, No Chills, No Headache, No Pharyngitis, No Stiff Neck, No Swollen Lymph Nodes, No Cough, No Sputum Production, No Chest Pain, No Palpitations, No Abdominal Pain, No Nausea, No Vomiting, No Diarrhea, No Dysuria, No Joint
Pain and No Skin Rash (patient with expected suprapubic tenderness, surgical wound without reddness and with minimal drainage being followed by [facility])
Vital Signs / Physical Exam
Vital Signs
Vital Signs
Temp Pulse Resp BP Pulse Ox
97.9 F 70 14 119/70 98
08/18/24 07:05 08/18/24 07:05 08/18/24 07:05 08/18/24 07:05 08/18/24 08:11
Physical Exam
Constitutional: No Acute Distress, Well Developed, Comfortable and Non-toxic
Head: Normocephalic
Eyes: Pupils Equal, Pupils Round, No Conjunctival Hemorrhage and Sclera Anicteric
Oropharyngeal: Benign
Cardiovascular: Regular Rate
Pulmonary: Clear and Non Labored
Gastrointestinal: Soft, Non Tender, Non Distended, Normal Bowel Sounds, No Rebound and No Guarding
Genito-Urinary: Suprapubic Tenderness (at CS incision site)
Extremities: Other (no edema with good ROM)
Skin: Warm and Dry
Wound: Other (healing with minimal draining and minimal tenderness)
Neurological: Awake, Alert, Oriented, AO x 3, Normal Gait, Normal Muscle Strength and No Motor Deficits
Psychological: Calm
Lines: PIV
Objective Data
Lab Data
Lab Results
08/17/24 07:42
08/17/24 07:42
Estimated Creat Clear 102 ml/min 08/17/24 07:42
Lactic Acid 0.8 mmol/L (0.7-2.0) 08/14/24 13:58
Total Bilirubin 0.4 mg/dl (0.2-1.3) 08/17/24 07:42
AST 19 U/L (14-36) 08/17/24 07:42
ALT 17 U/L (0-35) 08/17/24 07:42
Alkaline Phosphatase 82 U/L (38-126) 08/17/24 07:42
Most recent labs reviewed.
Microbiology: Report Reviewed (await blood culture negative report at 48 H )
Micro Results:
08/14/24 14:25 Blood Culture - Preliminary
Blood/Venous No Growth in 4 days- Final report to follow
08/14/24 18:54 Wound Culture - Final
Abscess Escherichia coli
Gram Stain - Final
08/16/24 21:51 Blood Culture - Preliminary
Blood/Venous No Growth in 24 hours- Final report to follow
08/16/24 21:51 Blood Culture - Preliminary
Blood/Venous No Growth in 24 hours- Final report to follow
08/14/24 13:58 Blood Culture - Preliminary
Blood/Venous Coagulase neg. staphylococcus
Additional testing on request
Gram Stain - Preliminary
08/14/24 13:59 Urine Culture - Final
Urine No Significant Growth
08/14/24 13:58 Influenza Types A & B (PABLO) - Final
Nasal Swab Negative for Influenza A & B, NAAT
Negative results must be combined with clinical observations
and patient history.
Nucleic Acid Amplification test (NAAT)performed on the
[employer] platform.
Care Review
Plan reviewed with: Nurse and Physician (case reviewer)
Total Time Spent with Patient (in minutes): 45
--- NOTE | 2024-08-18 15:20 | W.PN.HOSP.TC ---
Today's Communication/Plan
-
dc to home
Assessment / Plan
Assessment / Plan
(July 29) incisional infection
wound I&D pending. ID will decide on abx once wound cx results known
WBC 10.6-->6.0-->7.5k
To change to Rocephin, to continue 2 gms daily until 08/23. As per ID, would not need oral abx post tx
E. Coli bacteremia 07/30
felt to be due to chorioamnionitis as per Dr. Vargas note from prior hospitalization
Rash from Amoxicillin as a child
Gestational diabetes
P:ID, DIRECTOR OF BUSINESS SYSTEMS consults
change to Rocephin
full code
see dictated note
dc now
More than 30 minutes spent in discharge including
Final examination of the patient
Summarizing hospital stay
Instructions for continuing care to all relevant caregivers
Preparation of discharge records, prescriptions, and referral forms
Total time spent (in minutes): 45
Anticipated Discharge: Today
Subjective/Interval History
-
Date of Service: August 18, 2024
feels well, anxiously awaiting dc
Objective Data
-
Vital Signs:
Vital Signs
Temp Pulse Resp BP Pulse Ox
97.9 F 70 14 119/70 98
08/18/24 07:05 08/18/24 07:05 08/18/24 07:05 08/18/24 07:05 08/18/24 08:11
I&O
08/17/24 08/18/24 08/19/24
06:59 06:59 06:59
Intake Total 1410 / 1410 960 / 960
Balance 1410 / 1410 960 / 960
Review of Systems
-
History Source: Patient, Family ( in room) and Coordinated Provider (Shweta, from unit in room during entire exam)
Constitutional: Reports Fever (101.1 on 08/14 19:50, afebrile since)
EENT: Reports No Symptoms Reported
Respiratory: Reports No Symptoms
Cardiac: Reports No Symptoms
Abdomen/GI: Reports Abdominal Pain; Denies Nausea, Vomiting or Diarrhea
Genitourinary: Reports No Symptoms
Musculoskeletal: Reports No Symptoms
Physical Exam
-
General: Well Developed, Well Nourished and No Apparent Distress
HEENT: Normocephalic, Atraumatic and Moist Mucous Membranes
Respiratory: Clear to Auscultation; Negative Wheezes, Rales or Rhonchi
Cardiac: Regular Rhythm and S1/S2
GI: Soft and Tender (in incision area, essentially resolved)
Musculoskeletal: No Clubbing, No Cyanosis and No Edema
Skin: Other (tissue surrounding incisional site not as warm or tender, redness has resolved)
Neuro: Awake, Alert and Oriented
Psych: Calm
[2024-08-18 15:26] VITALS: BP 105/69
[2024-08-18] MEDS: ROCEPHIN 2000 MG IV (15:47)
[2024-08-18] MEDS: STERILE WATER FOR INJECTION 20 ML IV (15:47)
--- NOTE | 2024-08-18 16:10 | VNURNOTE ---
Home Health Liaison met with patient and spouse at bedside to discuss [facility] nurse/therapy, visits, schedule and homebound status. Both are agreeable and understand that visits at home will be 2-3 x per week to assess and teach medical management.
Requested from RN that extra wound care supplies be sent home w/pt. Patient and spouse are aware that [facility] will contact them for start of care in 1-2 days after discharge from .
[facility] referral completed in [facility].
--- NOTE | 2024-08-18 17:08 | W.DS.TRANS ---
DC Summary - Adoption Manager
-
Discharge Instructions:
Discharge Diagnosis/Procedures Infected site
Diet Regular
Activity No strenuous activity
Driving Restrictions Not until seen by your Dr
Bathing Restrictions OK to Shower
Other Services VN
Instructions:
Stand-Alone Forms:
Changes to Home Medications: Yes
Discharge Medications:
DC Medications w/original date entered in [employer]
sertraline 100 mg tablet 100 mg PO HS Depression 08/14/24
acetaminophen 325 mg tablet 650 mg (2 x 325 mg) PO Q4HPRN PRN mild pain/ fever >100.3 #0 tabs 08/18/24
ceftriaxone 2 gram solution for injection 2,000 mg IV Q24H #0 ea 08/18/24
vitamin with calcium no.72-iron 27 mg-folic acid 1 mg tablet (WesTab Plus) 1 tab PO DAILY #0 tabs 08/18/24
Home Medication Changes
Rocephin through August 23
Pending Results: No
== END 2024-08-18 17:08 | disposition home health service (06) | DRG 776 ==
LOC: 4 WEST ACU 18:05
PROVIDERS: Physician Assistant; ADMITTING PHYSICIAN Internal Medicine; CONSULT PHYSICIAN Obstetrics & Gynecology; EMERGENCY PHYSICIAN Emergency Medicine; FAMILY PHYSICIAN Physician Assistant Medical; OTHER PHYSICIAN Hospitalist
DX: O86.02 Infection of obstetric surgical wound, deep incisional site (principal); L02.91 Cutaneous abscess, unspecified; R78.81 Bacteremia; Z11.52 Encounter for screening for COVID-19; B96.89 Other specified bacterial agents as the cause of diseases classified elsewhere; B96.20 Unspecified Escherichia coli [E. coli] as the cause of diseases classified elsewhere; Z80.49 Family history of malignant neoplasm of other genital organs
CPT/HCPCS: 74177; 80053; 81003; 81015; 82607; 82728; 83540; 83550; 83605; 85025; 85027; 87040; 87070; 87077; 87086; 87150; 87186; 87205; 87502; 87811; 96361; 96365; 99284; J1335; Q9967